=== PATIENT | female | born 2000 | race Caucasian/White ===

== ENCOUNTER 2020-12-11 07:48 | Inpatient (IN) | payer OTHER, SELFPAY ==
[2020-12-11] VITALS (10 sets, daily range): BP systolic 96–110; BP diastolic 49–67; PULSE 60–91; RESP 14–22; TEMP 36.6–36.8; O2SAT 91–94; BMI 23.6
--- NOTE | ~2020-12-11 | NM_ITS ---
EXAMINATION: NM LUNG IMAGE PERFUSION CLINICAL INDICATION: Hypoxia. COMPARISON: Chest x-ray performed earlier same date. PROCEDURE: Following the intravenous administration of 0.5 millicuries technetium 99m MAA, images of the chest were again obtained in multiple projections using a gamma scintophoto camera. No segmental perfusion defects or other perfusion abnormalities are noted. NM/NM pul perfusion IMPRESSION: Normal radionuclide perfusion scan.
--- NOTE | ~2020-12-11 | US_ITS ---
EXAMINATION: US OBSTETRICAL ULTRASOUND CLINICAL INFORMATION: Abdominal pain and vomiting. COMPARISON: None. LMP: 10/28/2020. Gestational age by maternal dates is 6 weeks, 2 days. Estimated date of delivery by maternal dates is 10/04/2020. TECHNIQUE: Transabdominal imaging of the uterus and ovaries performed utilizing grayscale and color Doppler technique with M-mode imaging FINDINGS: There is a single intrauterine gestational sac with visible yolk sac, embryo/fetus, and cardiac activity. There is no significant subchorionic hemorrhage or hematoma. HR: 122 beats per minute. CRL (crown rump length): 0.66 cm (6 weeks, 4 days). NASRIN (estimated date of delivery): 08/02/2021. MATERNAL ADNEXA: The right maternal ovary measures 3.6 x 2.4 x 2.6 cm. 0.6 cm corpus luteum within the right ovary. The left maternal ovary measures 2.1 x 1.4 x 1.7 cm. There is no significant maternal adnexal mass. No maternal pelvic ascites. US/US OB <= 14 weeks fetus IMPRESSION: 1. Single intrauterine gestation with ultrasound gestational age of 6 weeks, 4 days. 2. Estimated date of delivery is 08/02/2021 +/- 4 days. 3. No maternal adnexal mass or pelvic ascites.
--- NOTE | ~2020-12-11 | XR_ITS ---
EXAMINATION: XR CHEST CLINICAL INFORMATION: Chest pain COMPARISON: None TECHNIQUE: Frontal view of the chest was obtained. FINDINGS: No significant abnormality is noted involving the heart, lungs, mediastinum, bony thorax or soft tissues. XR/XR chest 1V IMPRESSION: Unremarkable chest examination.
--- NOTE | ~2020-12-11 | US_ITS ---
EXAMINATION: US VENOUS ULTRASOUND WITH DOPPLER LOWER EXTREMITY, BILATERAL CLINICAL INFORMATION: Hypoxia, . Question DVT. COMPARISON: None TECHNIQUE: Ultrasound of the deep veins is performed from the hip to the calf with compression sonography and color and pulse Doppler assessment. Spectral analysis with color-flow imaging is performed. FINDINGS: RIGHT: There is normal venous compression and respiratory variation and augmented flow. The visualized common femoral vein, superficial femoral vein, profunda femoral vein, popliteal vein, and the trifurcation region shows no evidence of deep venous thrombosis. There is no significant popliteal fossa cyst. LEFT: There is normal venous compression and respiratory variation and augmented flow. The visualized common femoral vein, superficial femoral vein, profunda femoral vein, popliteal vein, and the trifurcation region shows no evidence of deep venous thrombosis. There is no significant popliteal fossa cyst. If the patient's symptoms persist, followup ultrasound in 5 days 7 days might be of value to exclude proximal propagation from a non-visualized calf vein. US/US venous duplex LE BI IMPRESSION: No DVT demonstrated in the bilateral lower extremity.
[2020-12-11] MEDS: ondansetron HCL 4 MG/2 ML VIAL IVPUSH ×2 (09:07→15:46)
[2020-12-11] MEDS: 0.9 % Sodium Chloride 1,000 ML 999 ML IVCONT ×2 (09:07→18:54)
--- NOTE | 2020-12-11 09:14 | ECG_ITS ---
Test Reason : CHEST PAIN Blood Pressure : / mmHG Vent. Rate : 058 BPM Atrial Rate : 058 BPM P-R Int : 144 ms QRS Dur : 072 ms QT Int : 404 ms P-R-T Axes : 066 073 054 degrees QTc Int : 396 ms Sinus bradycardia with marked sinus arrhythmia Otherwise normal ECG When compared with ECG of 12-JUN-2018 22:58, Vent. rate has decreased BY 60 BPM T wave amplitude has increased in Anterior leads Referred By: Seda Liu Electronically Signed By:Rolf Busby
--- NOTE | 2020-12-11 09:15 | ED_ITS ---
HPI - General Adult General Chief complaint: General Medical <MELIA Patel - Last Filed: 12/11/20 17:08> Stated complaint: VOMITING - 6WKS PREG <MELIA Patel - Last Filed: 12/11/20 17:08> Time Seen by Provider: 12/11/20 08:23 <MELIA Patel Last Filed: 12/11/20 17:08> Source: patient <MELIA Patel Last Filed: 12/11/20 17:08> Mode of arrival: ambulatory <MELIA Patel Last Filed: 12/11/20 17:08> Limitations: no limitations <MELIA Patel Last Filed: 12/11/20 17:08> History of Present Illness HPI narrative: 20 y/o who is 6-7 weeks presenting with nausea and vomiting since last night. She states her LMP was 10/28/20. She has been having normal morning sickness with only nausea and very occasional vomiting. She states she woke up early this morning with profuse vomiting and inability to tolerate any water, Gatorade or crackers. She states her vomitus is yellow bile. It is associated with right sided and epigastric abdominal pain. She denies vaginal bleeding, lower abdominal pain/cramping. She states her urine is dark. She denies dysuria. No fever or chills. She has mild SOB and central chest pain/ epigastric pain when she vomits. No known exposure to COVID-19. <MELIA Patel Last Filed: 12/11/20 17:08> MD complaint: nausea and vomiting <MELIA Patel - Last Filed: 12/11/20 17:08> Onset (ago): hour(s) (6) <MELIA Patel Last Filed: 12/11/20 17:08> Location: abdomen <MELIA Patel Last Filed: 12/11/20 17:08> Radiation: non-radiation <MELIA Patel Last Filed: 12/11/20 17:08> Severity: moderate <MELIA Patel Last Filed: 12/11/20 17:08> Quality: burning, aching and constant <MELIA Patel Last Filed: 12/11/20 17:08> Pain Consistency: intermittent <MELIA Patel Last Filed: 12/11/20 17:08> Relieving factors: none <MELIA Patel Last Filed: 12/11/20 17:08> Exacerbating factors: eating <MELIA Patel Last Filed: 12/11/20 17:08> Associated symptoms: chest pain (epigastric ), nausea/vomiting, shortness of breath and weakness <MELIA Patel Last Filed: 12/11/20 17:08> Treatments prior to arrival: none <MELIA Patel Last Filed: 12/11/20 17:08> Related Data Allergies/adverse reactions: Allergies Allergy/AdvReac Type Severity Reaction Status Date / Time kendrick Allergy Unknown RASH Unverified 06/17/20 16:44 <MELIA Patel Last Filed: 12/11/20 17:08> Review of Systems Review of Systems: Constitutional: No Fever, No Chills ENT/Mouth: No sore throat, No Rhinorrhea, No Swallowing Difficulty Eyes: No Eye Pain, No Swelling, No Redness Cardiovascular: + Chest Pain, + SOB, No Orthopnea, No Edema Respiratory: No Cough, No Sputum, No Wheezing, No dyspnea Gastrointestinal: + Nausea, + Vomiting, No Diarrhea, + abdominal Pain, No Hematochezia, No Melena Genitourinary: No Dysuria, No Urinary Frequency, No Hematuria Musculoskeletal: No joint pain, No Myalgias Skin: No Skin Lesions, No rash Neuro: + Weakness, No Numbness, No Dizziness, No Headache Psych: No Anxiety/Panic, No Depression Heme/Lymph: No Bruising, No Lymphadenopathy Endocrine: No Polyuria, No Polydipsia <MELIA Patel Last Filed: 12/11/20 17:08> FORMERLY [facility], [facility] Past Medical History Attestation statement: The following information was validated with the patient. <MELIA Patel Last Filed: 12/11/20 17:08> : 2 <MELIA Patel Last Filed: 12/11/20 17:08> Para: 1 <MELIA Patel - Last Filed: 12/11/20 17:08> Total number of abortions (spontaneous and elective): 0 <MELIA Patel - Last Filed: 12/11/20 17:08> Date of Last Menstrual Period: 10/28/20 <MELIA Patle - Last Filed: 12/11/20 17:08> Social History Social History: Social History Smoking Status: Former smoker Use of substances other than those prescribed or required for medical reasons: No Advance Directives: No Advance Directives Information Provided: Yes <MELIA Patel - Last Filed: 12/11/20 17:08> Physical Exam Vital Signs: Vital Signs: Last Vital Signs Temp 98.3 F 12/11/20 18:00 Pulse 79 12/11/20 18:55 Resp 16 12/11/20 18:55 BP 106/52 L 12/11/20 18:55 Pulse Ox 93 12/11/20 18:55 Body Mass Index 23.6 Appearance: Alert. Oriented X3. No acute distress. Eyes: Pupils equal, round and reactive to light. ENT: Pharynx normal. Neck: Normal inspection. Neck supple. CVS: Normal heart rate and rhythm. Pulses normal. Respiratory: No respiratory distress. Breath sounds normal. Abdomen: Soft with RUQ tenderness to deep palpation, no rebound or guarding. +BS x4, hyperactive Skin: Skin warm and dry. Normal skin color. Normal skin turgor. No rashes. Extremities: No lower extremity edema. Negative Liss's sign. Neuro: Oriented X 3. No motor deficit. No sensory deficit. Walks with steady gait. <MELIA Patel - Last Filed: 12/11/20 17:08> Vital Signs: Last Vital Signs Temp 98.3 F 12/11/20 18:00 Pulse 79 12/11/20 18:55 Resp 16 12/11/20 18:55 BP 106/52 L 12/11/20 18:55 Pulse Ox 93 12/11/20 18:55 Body Mass Index 23.6 <Richard Springer MD - Last Filed: 12/11/20 19:58> Course Course Course Narrative: 20 y/o female who is 6-7 weeks who presents with nausea and vomiting that started late last night. Unable to tolerate PO. When she is vomiting she reports central chest discomfort, SOB and epigastric burning. On arrival SpO2 90% on room air. Lungs clear, no hx of asthma. Will get basic lab workup including DDIMER, CXR, troponin, EKG. IVF and Zofran ordered. <MELIA Patel - Last Filed: 12/11/20 17:08> Reevaluation(s) Reevaluation #1: DDIMER negative, troponin negative. CXR negative. COVID negative. Remains on 2L NC. When taken off O2 her SpO2 90-92%. Spoke with Dr. Alejandre at 12:20 pm - per [place] [employer] and ACOG recommendations it is recommended to get a V/Q scan for further investigation of hypoxia. LE dopplers also ordered. Patient has recurrent nausea - IV reglan ordered. Consent obtained for V/Q scan - risks and benefits discussed and patient understands the risks. <MELIA Patel - Last Filed: 12/11/20 17:08> Patient with vomiting and shortness of breath plan to admit to the hospital but patient refusing to get admitted would like to go AMA for Child issues at home. Patient was saturating 90% on ambulation will do discharge the patient AMA on Augmentin and short course of steroids <Richard Springer MD - Last Filed: 12/11/20 19:58> Time: 19:55 <Richard Springer MD - Last Filed: 12/11/20 19:58> Reevaluation #2: UA positive for infection - will treat with cephalosporin. VQ is normal ECHO ordered to assess for peripartum cardiomyopathy, her BNP is normal. Will need to be admitted for hypoxia. <MELIA Patel - Last Filed: 12/11/20 17:08> Reevaluation #3: Trialed albuterol with no improvement in saturations. She is now on 4L NC with SpO2 93-94%. She is breathing comfortably. Dr. Alejandre recommending transfer to [facility] for further workup. Spoke with Bed Management at [facility] and OB restident at [facility] - no medical need to transfer to [facility] at this time. Will admit here. Dr. Lehman aware. <MELIA Patel - Last Filed: 12/11/20 17:08> Consultations Consultation #1: Dr. Alejandre - [employer] <MELIA Patel - Last Filed: 12/11/20 17:08> Medical Decision Making Lab Data Result diagrams: : 12/11/20 09:03 12/11/20 09:03 <MELIA Patel - Last Filed: 12/11/20 17:08> Labs: Lab Results 12/11/20 12/11/20 12/11/20 Range/Units 09:03 09:03 09:03 WBC 9.7 (4.8-10.8) X10*3/uL RBC 5.13 (4.20-5.50) X10*6/uL Hgb 15.5 (12.0-16.0) g/dl Hct 46.0 (37-47) % MCV 89.7 (80-98) fL MCH 30.2 (27.0-33.0) pg MCHC 33.7 (31.0-35.0) g/dl RDW 12.2 (11.0-16.0) % Plt Count 267 (160-400) X10*3/uL MPV 9.9 (9.4-12.3) fL Immature Gran % (Auto) 0.5 H (0.0-0.4) % Neut % (Auto) 76.9 H (45-73) % Lymph % (Auto) 15.7 L (20-40) % [place] % (Auto) 6.1 (2-11) % Eos % (Auto) 0.5 (0-4) % Baso % (Auto) 0.3 (0-2) % Lymph # (Auto) 1.5 (1.2-4.9) X10*3/uL [place] # (Auto) 0.6 (0.1-1.2) X10*3/uL Eos # (Auto) 0.1 (0.0-0.4) X10*3/uL Baso # (Auto) 0.0 (0.0-0.2) X10*3/uL Abs Immat Gran (auto) 0.05 H (0.00-0.03) X10*3/uL Absolute Neuts (auto) 7.4 (2.0-8.3) X10*3/uL Absolute Nucleated RBC 0.000 (0.0-0.012) X10*3/uL Nucleated RBC % (auto) 0.0 (0.0-0.2) /100WBC D-Dimer NG/ML O2 Saturation % ABG pH at Pt Temp (7.35-7.45) ABG pCO2 at Pt Temp (32-45) mmHg ABG pO2 at Pt Temp (83-108) mmHg ABG HCO3 (22-26) mmol/L ABG Base Excess (Actual) mmol/L Sodium 138 (135-145) mmol/L Potassium 3.7 (3.3-5.1) mmol/L Chloride 104 (96-108) mmol/L Carbon Dioxide 23 (22-29) mmol/L Anion Gap 15 (12-20) BUN 8 L (9-16) mg/dL Creatinine 0.75 (0.5-1.4) mg/dL Estim Creat Clear Calc 106.8 Estimated GFR > 60 Random Glucose 112 (60-115) mg/dL Lactic Acid (0.5-2.0) mmol/L Calcium 10.0 (8.4-10.2) mg/dL Magnesium 2.2 (1.6-2.6) mg/dL Total Bilirubin 0.8 (0.0-1.0) mg/dL Direct Bilirubin 0.4 (0.0-0.5) mg/dL AST 18 (5-31) U/L ALT 11 (0-31) U/L Alkaline Phosphatase 60 (39-117) U/L Troponin I High Sens (<3.5-17.0) ng/L B-Natriuretic Peptide (<100) pg/mL Total Protein 8.0 (6.5-8.0) g/dL Albumin 5.2 H (3.5-5.0) g/dL TSH 1.00 (0.32-4.0) uIU/mL Beta HCG, Quant 85955 mIU/mL Urine Color DARK YELLOW Urine Appearance HAZY Urine pH 6.0 (5.0-8.0) Ur Specific Banner 1.025 (1.005-1.025) Urine Protein 1+ H (NEG-TRACE) MG/DL Urine Glucose (UA) NEG (NEG) MG/DL Urine Ketones 40 (NEG) MG/DL Urine Blood 2+ H (NEG) Urine Nitrite NEG (NEG) Ur Leukocyte Esterase TRACE H (NEG) Urine RBC 5-9 H (0) /HPF Urine WBC 10-14 H (0-4) /HPF Ur Squamous Epith Cells 3+ /LPF Urine Bacteria 1+ /LPF Urine Mucus 4+ /LPF Urine Test (NEGATIVE) Coronavirus (PCR) (Negative) Influenza Type A (PCR) (Negative) Influenza Type B (PCR) (Negative) RSV RNA Qual (PCR) (Negative) 12/11/20 12/11/20 12/11/20 Range/Units 09:04 09:31 09:45 WBC (4.8-10.8) X10*3/uL RBC (4.20-5.50) X10*6/uL Hgb (12.0-16.0) g/dl Hct (37-47) % MCV (80-98) fL MCH (27.0-33.0) pg MCHC (31.0-35.0) g/dl RDW (11.0-16.0) % Plt Count (160-400) X10*3/uL MPV (9.4-12.3) fL Immature Gran % (Auto) (0.0-0.4) % Neut % (Auto) (45-73) % Lymph % (Auto) (20-40) % [place] % (Auto) (2-11) % Eos % (Auto) (0-4) % Baso % (Auto) (0-2) % Lymph # (Auto) (1.2-4.9) X10*3/uL [place] # (Auto) (0.1-1.2) X10*3/uL Eos # (Auto) (0.0-0.4) X10*3/uL Baso # (Auto) (0.0-0.2) X10*3/uL Abs Immat Gran (auto) (0.00-0.03) X10*3/uL Absolute Neuts (auto) (2.0-8.3) X10*3/uL Absolute Nucleated RBC (0.0-0.012) X10*3/uL Nucleated RBC % (auto) (0.0-0.2) /100WBC D-Dimer NG/ML O2 Saturation % ABG pH at Pt Temp (7.35-7.45) ABG pCO2 at Pt Temp (32-45) mmHg ABG pO2 at Pt Temp (83-108) mmHg ABG HCO3 (22-26) mmol/L ABG Base Excess (Actual) mmol/L Sodium (135-145) mmol/L Potassium (3.3-5.1) mmol/L Chloride (96-108) mmol/L Carbon Dioxide (22-29) mmol/L Anion Gap (12-20) BUN (9-16) mg/dL Creatinine (0.5-1.4) mg/dL Estim Creat Clear Calc Estimated GFR Random Glucose (60-115) mg/dL Lactic Acid (0.5-2.0) mmol/L Calcium (8.4-10.2) mg/dL Magnesium (1.6-2.6) mg/dL Total Bilirubin (0.0-1.0) mg/dL Direct Bilirubin (0.0-0.5) mg/dL AST (5-31) U/L ALT (0-31) U/L Alkaline Phosphatase (39-117) U/L Troponin I High Sens < 3.5 (<3.5-17.0) ng/L B-Natriuretic Peptide < 10 (<100) pg/mL Total Protein (6.5-8.0) g/dL Albumin (3.5-5.0) g/dL TSH (0.32-4.0) uIU/mL Beta HCG, Quant mIU/mL Urine Color Urine Appearance Urine pH (5.0-8.0) Ur Specific Banner (1.005-1.025) Urine Protein (NEG-TRACE) MG/DL Urine Glucose (UA) (NEG) MG/DL Urine Ketones (NEG) MG/DL Urine Blood (NEG) Urine Nitrite (NEG) Ur Leukocyte Esterase (NEG) Urine RBC (0) /HPF Urine WBC (0-4) /HPF Ur Squamous Epith Cells /LPF Urine Bacteria /LPF Urine Mucus /LPF Urine Test POSITIVE H (NEGATIVE) Coronavirus (PCR) NEGATIVE (Negative) Influenza Type A (PCR) NEGATIVE (Negative) Influenza Type B (PCR) NEGATIVE (Negative) RSV RNA Qual (PCR) NEGATIVE (Negative) 12/11/20 12/11/20 12/11/20 Range/Units 10:54 16:26 17:41 WBC (4.8-10.8) X10*3/uL RBC (4.20-5.50) X10*6/uL Hgb (12.0-16.0) g/dl Hct (37-47) % MCV (80-98) fL MCH (27.0-33.0) pg MCHC (31.0-35.0) g/dl RDW (11.0-16.0) % Plt Count (160-400) X10*3/uL MPV (9.4-12.3) fL Immature Gran % (Auto) (0.0-0.4) % Neut % (Auto) (45-73) % Lymph % (Auto) (20-40) % [place] % (Auto) (2-11) % Eos % (Auto) (0-4) % Baso % (Auto) (0-2) % Lymph # (Auto) (1.2-4.9) X10*3/uL [place] # (Auto) (0.1-1.2) X10*3/uL Eos # (Auto) (0.0-0.4) X10*3/uL Baso # (Auto) (0.0-0.2) X10*3/uL Abs Immat Gran (auto) (0.00-0.03) X10*3/uL Absolute Neuts (auto) (2.0-8.3) X10*3/uL Absolute Nucleated RBC (0.0-0.012) X10*3/uL Nucleated RBC % (auto) (0.0-0.2) /100WBC D-Dimer < 200 NG/ML O2 Saturation 99.0 % ABG pH at Pt Temp 7.44 (7.35-7.45) ABG pCO2 at Pt Temp 27 L (32-45) mmHg ABG pO2 at Pt Temp 206 H (83-108) mmHg ABG HCO3 18 L (22-26) mmol/L ABG Base Excess (Actual) -3.8 mmol/L Sodium (135-145) mmol/L Potassium (3.3-5.1) mmol/L Chloride (96-108) mmol/L Carbon Dioxide (22-29) mmol/L Anion Gap (12-20) BUN (9-16) mg/dL Creatinine (0.5-1.4) mg/dL Estim Creat Clear Calc Estimated GFR Random Glucose (60-115) mg/dL Lactic Acid 0.9 (0.5-2.0) mmol/L Calcium (8.4-10.2) mg/dL Magnesium (1.6-2.6) mg/dL Total Bilirubin (0.0-1.0) mg/dL Direct Bilirubin (0.0-0.5) mg/dL AST (5-31) U/L ALT (0-31) U/L Alkaline Phosphatase (39-117) U/L Troponin I High Sens (<3.5-17.0) ng/L B-Natriuretic Peptide (<100) pg/mL Total Protein (6.5-8.0) g/dL Albumin (3.5-5.0) g/dL TSH (0.32-4.0) uIU/mL Beta HCG, Quant mIU/mL Urine Color Urine Appearance Urine pH (5.0-8.0) Ur Specific Banner (1.005-1.025) Urine Protein (NEG-TRACE) MG/DL Urine Glucose (UA) (NEG) MG/DL Urine Ketones (NEG) MG/DL Urine Blood (NEG) Urine Nitrite (NEG) Ur Leukocyte Esterase (NEG) Urine RBC (0) /HPF Urine WBC (0-4) /HPF Ur Squamous Epith Cells /LPF Urine Bacteria /LPF Urine Mucus /LPF Urine Test (NEGATIVE) Coronavirus (PCR) (Negative) Influenza Type A (PCR) (Negative) Influenza Type B (PCR) (Negative) RSV RNA Qual (PCR) (Negative) <MELIA Patel - Last Filed: 12/11/20 17:08> Lab Results 12/11/20 12/11/20 12/11/20 Range/Units 09:03 09:03 09:03 WBC 9.7 (4.8-10.8) X10*3/uL RBC 5.13 (4.20-5.50) X10*6/uL Hgb 15.5 (12.0-16.0) g/dl Hct 46.0 (37-47) % MCV 89.7 (80-98) fL MCH 30.2 (27.0-33.0) pg MCHC 33.7 (31.0-35.0) g/dl RDW 12.2 (11.0-16.0) % Plt Count 267 (160-400) X10*3/uL MPV 9.9 (9.4-12.3) fL Immature Gran % (Auto) 0.5 H (0.0-0.4) % Neut % (Auto) 76.9 H (45-73) % Lymph % (Auto) 15.7 L (20-40) % [place] % (Auto) 6.1 (2-11) % Eos % (Auto) 0.5 (0-4) % Baso % (Auto) 0.3 (0-2) % Lymph # (Auto) 1.5 (1.2-4.9) X10*3/uL [place] # (Auto) 0.6 (0.1-1.2) X10*3/uL Eos # (Auto) 0.1 (0.0-0.4) X10*3/uL Baso # (Auto) 0.0 (0.0-0.2) X10*3/uL Abs Immat Gran (auto) 0.05 H (0.00-0.03) X10*3/uL Absolute Neuts (auto) 7.4 (2.0-8.3) X10*3/uL Absolute Nucleated RBC 0.000 (0.0-0.012) X10*3/uL Nucleated RBC % (auto) 0.0 (0.0-0.2) /100WBC D-Dimer NG/ML O2 Saturation % ABG pH at Pt Temp (7.35-7.45) ABG pCO2 at Pt Temp (32-45) mmHg ABG pO2 at Pt Temp (83-108) mmHg ABG HCO3 (22-26) mmol/L ABG Base Excess (Actual) mmol/L Sodium 138 (135-145) mmol/L Potassium 3.7 (3.3-5.1) mmol/L Chloride 104 (96-108) mmol/L Carbon Dioxide 23 (22-29) mmol/L Anion Gap 15 (12-20) BUN 8 L (9-16) mg/dL Creatinine 0.75 (0.5-1.4) mg/dL Estim Creat Clear Calc 106.8 Estimated GFR > 60 Random Glucose 112 (60-115) mg/dL Lactic Acid (0.5-2.0) mmol/L Calcium 10.0 (8.4-10.2) mg/dL Magnesium 2.2 (1.6-2.6) mg/dL Total Bilirubin 0.8 (0.0-1.0) mg/dL Direct Bilirubin 0.4 (0.0-0.5) mg/dL AST 18 (5-31) U/L ALT 11 (0-31) U/L Alkaline Phosphatase 60 (39-117) U/L Troponin I High Sens (<3.5-17.0) ng/L B-Natriuretic Peptide (<100) pg/mL Total Protein 8.0 (6.5-8.0) g/dL Albumin 5.2 H (3.5-5.0) g/dL TSH 1.00 (0.32-4.0) uIU/mL Beta HCG, Quant 01166 mIU/mL Urine Color DARK YELLOW Urine Appearance HAZY Urine pH 6.0 (5.0-8.0) Ur Specific Banner 1.025 (1.005-1.025) Urine Protein 1+ H (NEG-TRACE) MG/DL Urine Glucose (UA) NEG (NEG) MG/DL Urine Ketones 40 (NEG) MG/DL Urine Blood 2+ H (NEG) Urine Nitrite NEG (NEG) Ur Leukocyte Esterase TRACE H (NEG) Urine RBC 5-9 H (0) /HPF Urine WBC 10-14 H (0-4) /HPF Ur Squamous Epith Cells 3+ /LPF Urine Bacteria 1+ /LPF Urine Mucus 4+ /LPF Urine Test (NEGATIVE) Coronavirus (PCR) (Negative) Influenza Type A (PCR) (Negative) Influenza Type B (PCR) (Negative) RSV RNA Qual (PCR) (Negative) 12/11/20 12/11/20 12/11/20 Range/Units 09:04 09:31 09:45 WBC (4.8-10.8) X10*3/uL RBC (4.20-5.50) X10*6/uL Hgb (12.0-16.0) g/dl Hct (37-47) % MCV (80-98) fL MCH (27.0-33.0) pg MCHC (31.0-35.0) g/dl RDW (11.0-16.0) % Plt Count (160-400) X10*3/uL MPV (9.4-12.3) fL Immature Gran % (Auto) (0.0-0.4) % Neut % (Auto) (45-73) % Lymph % (Auto) (20-40) % [place] % (Auto) (2-11) % Eos % (Auto) (0-4) % Baso % (Auto) (0-2) % Lymph # (Auto) (1.2-4.9) X10*3/uL [place] # (Auto) (0.1-1.2) X10*3/uL Eos # (Auto) (0.0-0.4) X10*3/uL Baso # (Auto) (0.0-0.2) X10*3/uL Abs Immat Gran (auto) (0.00-0.03) X10*3/uL Absolute Neuts (auto) (2.0-8.3) X10*3/uL Absolute Nucleated RBC (0.0-0.012) X10*3/uL Nucleated RBC % (auto) (0.0-0.2) /100WBC D-Dimer NG/ML O2 Saturation % ABG pH at Pt Temp (7.35-7.45) ABG pCO2 at Pt Temp (32-45) mmHg ABG pO2 at Pt Temp (83-108) mmHg ABG HCO3 (22-26) mmol/L ABG Base Excess (Actual) mmol/L Sodium (135-145) mmol/L Potassium (3.3-5.1) mmol/L Chloride (96-108) mmol/L Carbon Dioxide (22-29) mmol/L Anion Gap (12-20) BUN (9-16) mg/dL Creatinine (0.5-1.4) mg/dL Estim Creat Clear Calc Estimated GFR Random Glucose (60-115) mg/dL Lactic Acid (0.5-2.0) mmol/L Calcium (8.4-10.2) mg/dL Magnesium (1.6-2.6) mg/dL Total Bilirubin (0.0-1.0) mg/dL Direct Bilirubin (0.0-0.5) mg/dL AST (5-31) U/L ALT (0-31) U/L Alkaline Phosphatase (39-117) U/L Troponin I High Sens < 3.5 (<3.5-17.0) ng/L B-Natriuretic Peptide < 10 (<100) pg/mL Total Protein (6.5-8.0) g/dL Albumin (3.5-5.0) g/dL TSH (0.32-4.0) uIU/mL Beta HCG, Quant mIU/mL Urine Color Urine Appearance Urine pH (5.0-8.0) Ur Specific Banner (1.005-1.025) Urine Protein (NEG-TRACE) MG/DL Urine Glucose (UA) (NEG) MG/DL Urine Ketones (NEG) MG/DL Urine Blood (NEG) Urine Nitrite (NEG) Ur Leukocyte Esterase (NEG) Urine RBC (0) /HPF Urine WBC (0-4) /HPF Ur Squamous Epith Cells /LPF Urine Bacteria /LPF Urine Mucus /LPF Urine Test POSITIVE H (NEGATIVE) Coronavirus (PCR) NEGATIVE (Negative) Influenza Type A (PCR) NEGATIVE (Negative) Influenza Type B (PCR) NEGATIVE (Negative) RSV RNA Qual (PCR) NEGATIVE (Negative) 12/11/20 12/11/20 12/11/20 Range/Units 10:54 16:26 17:41 WBC (4.8-10.8) X10*3/uL RBC (4.20-5.50) X10*6/uL Hgb (12.0-16.0) g/dl Hct (37-47) % MCV (80-98) fL MCH (27.0-33.0) pg MCHC (31.0-35.0) g/dl RDW (11.0-16.0) % Plt Count (160-400) X10*3/uL MPV (9.4-12.3) fL Immature Gran % (Auto) (0.0-0.4) % Neut % (Auto) (45-73) % Lymph % (Auto) (20-40) % [place] % (Auto) (2-11) % Eos % (Auto) (0-4) % Baso % (Auto) (0-2) % Lymph # (Auto) (1.2-4.9) X10*3/uL [place] # (Auto) (0.1-1.2) X10*3/uL Eos # (Auto) (0.0-0.4) X10*3/uL Baso # (Auto) (0.0-0.2) X10*3/uL Abs Immat Gran (auto) (0.00-0.03) X10*3/uL Absolute Neuts (auto) (2.0-8.3) X10*3/uL Absolute Nucleated RBC (0.0-0.012) X10*3/uL Nucleated RBC % (auto) (0.0-0.2) /100WBC D-Dimer < 200 NG/ML O2 Saturation 99.0 % ABG pH at Pt Temp 7.44 (7.35-7.45) ABG pCO2 at Pt Temp 27 L (32-45) mmHg ABG pO2 at Pt Temp 206 H (83-108) mmHg ABG HCO3 18 L (22-26) mmol/L ABG Base Excess (Actual) -3.8 mmol/L Sodium (135-145) mmol/L Potassium (3.3-5.1) mmol/L Chloride (96-108) mmol/L Carbon Dioxide (22-29) mmol/L Anion Gap (12-20) BUN (9-16) mg/dL Creatinine (0.5-1.4) mg/dL Estim Creat Clear Calc Estimated GFR Random Glucose (60-115) mg/dL Lactic Acid 0.9 (0.5-2.0) mmol/L Calcium (8.4-10.2) mg/dL Magnesium (1.6-2.6) mg/dL Total Bilirubin (0.0-1.0) mg/dL Direct Bilirubin (0.0-0.5) mg/dL AST (5-31) U/L ALT (0-31) U/L Alkaline Phosphatase (39-117) U/L Troponin I High Sens (<3.5-17.0) ng/L B-Natriuretic Peptide (<100) pg/mL Total Protein (6.5-8.0) g/dL Albumin (3.5-5.0) g/dL TSH (0.32-4.0) uIU/mL Beta HCG, Quant mIU/mL Urine Color Urine Appearance Urine pH (5.0-8.0) Ur Specific Banner (1.005-1.025) Urine Protein (NEG-TRACE) MG/DL Urine Glucose (UA) (NEG) MG/DL Urine Ketones (NEG) MG/DL Urine Blood (NEG) Urine Nitrite (NEG) Ur Leukocyte Esterase (NEG) Urine RBC (0) /HPF Urine WBC (0-4) /HPF Ur Squamous Epith Cells /LPF Urine Bacteria /LPF Urine Mucus /LPF Urine Test (NEGATIVE) Coronavirus (PCR) (Negative) Influenza Type A (PCR) (Negative) Influenza Type B (PCR) (Negative) RSV RNA Qual (PCR) (Negative) <Richard Springer MD - Last Filed: 12/11/20 19:58> ECG Data Attestation: I personally reviewed and interpreted this ECG as follows: <MELIA Patel - Last Filed: 12/11/20 17:08> Interpretation: sinus bradycardia, HR 58 bpm, normal ND interval, nomral QTC. no ST segment elevations. <MELIA Patel - Last Filed: 12/11/20 17:08> Scores Heart Score History: -0- slightly suspicious <MELIA Patel - Last Filed: 12/11/20 17:0 8> ECG: -0- normal <MELIA Patel - Last Filed: 12/11/20 17:08> Age: -0- < or = 45 <MELIA Patel - Last Filed: 12/11/20 17:08> Risk factory: -0- no risk factors known <MELIA Patel - Last Filed: 12/11/20 17:08> Troponin: -0- < or = normal limit <MELIA Patel - Last Filed: 12/11/20 17:08> Score: 0 <MELIA Patel - Last Filed: 12/11/20 17:08> Risk: 1.7% <MELIA Patel - Last Filed: 12/11/20 17:08> Critical Care Time Critical Care Time Critical Care Time: Yes <MELIA Patel - Last Filed: 12/11/20 17:08> Total Critical Care Time: 60 <MELIA Patel - Last Filed: 12/11/20 17:08> Attestation: I attest to critical care time spent caring for this patient with acute hypoxic respiratory failure of unclear etiology. Multiple re-evaluations at the bedside, reviewing records and results, and discussing with OB. <MELIA Patel - Last Filed: 12/11/20 17:08> Discharge Plan Discharge Clinical Impression: Acute respiratory failure with hypoxia, Vomiting during <MELIA Patel - Last Filed: 12/11/20 17:08> Patient Disposition: Left Against Medical Advice <MELIA Patel - Last Filed: 12/11/20 17:08>
[2020-12-11 09:17] LABS: MANUAL DIFF FLAG NO
[2020-12-11 09:19] LABS: Basophils Percent Auto 0.3 % (0-2); Eosinophils Absolute Auto 0.1 X10*3/uL (0.0-0.4); Eosinophils Percent Auto 0.5 % (0-4); Hemoglobin 15.5 g/dl (12.0-16.0); Imm Gran Abs Auto 0.05 X10*3/uL (0.00-0.03); Imm Gran Pct Auto 0.5 % (0.0-0.4); Lymphocytes Absolute Auto 1.5 X10*3/uL (1.2-4.9); Lymphocytes Percent Auto 15.7 % (20-40); Mean Corpuscular HGB Conc 33.7 g/dl (31.0-35.0); Mean Corpuscular Hemoglobin 30.2 pg (27.0-33.0); Mean Corpuscular Volume 89.7 fL (80-98); Mean Platelet Volume 9.9 fL (9.4-12.3); Monocytes Absolute Auto 0.6 X10*3/uL (0.1-1.2); Monocytes Percent Auto 6.1 % (2-11); Neutrophils Absolute Auto 7.4 X10*3/uL (2.0-8.3); Neutrophils Percent Auto 76.9 % (45-73); Platelet Count 267 X10*3/uL (160-400); Red Blood Count 5.13 X10*6/uL (4.20-5.50); Red Cell Distribution Width 12.2 % (11.0-16.0); White Blood Count 9.7 X10*3/uL (4.8-10.8)
[2020-12-11 09:20] LABS: Appearance Urine HAZY; Color Urine DARK YELLOW; Glucose Urine UA NEG (NEG); Leukocyte Esterase Urine TRACE (NEG); Nitrite Urine NEG (NEG); Specific Gravity - Urine 1.025 (1.005-1.025); UACC Culture Trigger YES; Urine Blood 2+ (NEG); Urine Ketones 40 MG/DL (NEG); Urine Protein 1+ MG/DL (NEG-TRACE)
[2020-12-11 09:23] LABS: Urine Pregnancy POSITIVE (NEGATIVE)
[2020-12-11 09:24] LABS: UPreg QC Valid YES
[2020-12-11 09:28] LABS: Bacteria Urine 1+ /LPF; Mucus Urine 4+ /LPF; Squamous Epithelial Cell Urine 3+ /LPF
--- NOTE | 2020-12-11 09:36 | PC.NURSE ---
patient o2 sats low upon arrival, 90%-91%. encouraged deep breathing, warmed hands which felt cool to touch. no improvement. patient reports she feels sob. PA made aware and went t bedside. patient also reports mid chest pain. ekg and chest x ray ordered. reports no sick contacts. placed on 2l o2. highest o2 94%. will monitor.
[2020-12-11 09:45] LABS: Alanine Aminotransferase 11 U/L (0-31); Albumin Level 5.2 g/dL (3.5-5.0); Alkaline Phosphatase 60 U/L (39-117); Anion Gap 15 (12-20); Aspartate Amino Transferase 18 U/L (5-31); Bilirubin Direct 0.4 mg/dL (0.0-0.5); Bilirubin Total 0.8 mg/dL (0.0-1.0); Blood Urea Nitrogen 8 mg/dL (9-16); Carbon Dioxide 23 mmol/L (22-29); Chloride 104 mmol/L (96-108); Creatinine Clr Calc Pharmacy 106.8; Estimated Glomerular Filt Rate > 60; Glucose Random 112 mg/dL (60-115); Magnesium 2.2 mg/dL (1.6-2.6); Potassium 3.7 mmol/L (3.3-5.1); Sodium 138 mmol/L (135-145)
[2020-12-11 10:15] LABS: Influenza A PCR NEGATIVE (Negative); Influenza B PCR NEGATIVE (Negative); Resp Syncy Virus RNA Qual PCR NEGATIVE (Negative); SARS COV2 PCR INHOUSE NEGATIVE (Negative)
[2020-12-11 10:41] LABS: Troponin-I High Sensitivity < 3.5 ng/L (<3.5-17.0)
[2020-12-11 10:43] LABS: HCG Quantitative 91617 mIU/mL
[2020-12-11 11:09] LABS: D Dimer < 200 NG/ML
--- NOTE | 2020-12-11 12:22 | P.CONOB_ITS ---
EMBEDDED DEVELOPER - CN: HPI Data of Consult Consult date: 12/11/20 Primary Care Provider: None Physician Consult Narrative Narrative: I was consulted regarding Teetee Miller who is a 20 year old female who presented emergency room with shortness of breath at 6 weeks of gestation no other respiratory symptoms. Pulse ox on presentation was 90%, COVID-19 is negative chest x-rays negative cc:: CC: FINISHER MAP AND CHART - Review of Systems Review of Systems ROS Unobtainable: All systems reviewed & are unremarkable except as noted in HPI and below Cardiovascular: Denies Palpatations, Loss of consciousness and Chest pain Respiratory: Denies Cough, Wheezing and Shortness of breath Musculoskeletal: Denies Low back pain Gastrointestinal: Denies Heartburn, Constipation, Diarrhea, Nausea and Vomiting Genitourinary: Denies Pain with urination, Burning with urination and Urinary frequency Neurological: Denies Migranes Psychological: Denies Depression OB [facility] Social History Social History Advance Directives: No Advance Directives Information Provided: Yes Meds Allergies Allergy/AdvReac Type Severity Reaction Status Date / Time kendrick Allergy Unknown RASH Unverified 06/17/20 16:44 EMBEDDED DEVELOPER Physical Exam Vitals Vital signs: Temp Pulse Resp BP Pulse Ox 98 F 88 19 103/62 91 L 12/11/20 08:24 12/11/20 12:12 12/11/20 12:12 12/11/20 09:11 12/11/20 12:12 Body Mass Index 23.6 Skin Appearance: No rashes and No lesions EMBEDDED DEVELOPER - Results Labs CBC & Chem 7: 12/11/20 09:03 12/11/20 09:03 Labs: Short CBC 12/11/20 Range/Units 09:03 WBC 9.7 (4.8-10.8) X10*3/uL Hgb 15.5 (12.0-16.0) g/dl Hct 46.0 (37-47) % Plt Count 267 (160-400) X10*3/uL BMP 12/11/20 09:03 Sodium 138 Potassium 3.7 Chloride 104 Carbon Dioxide 23 BUN 8 L Creatinine 0.75 Calcium 10.0 Liver Function 12/11/20 Range/Units 09:03 Total Bilirubin 0.8 (0.0-1.0) mg/dL Direct Bilirubin 0.4 (0.0-0.5) mg/dL AST 18 (5-31) U/L ALT 11 (0-31) U/L Alkaline Phosphatase 60 (39-117) U/L Albumin 5.2 H (3.5-5.0) g/dL Urine 12/11/20 12/11/20 Range/Units 09:03 09:04 Urine Color DARK YELLOW Urine Appearance HAZY Urine pH 6.0 (5.0-8.0) Ur Specific [place] 1.025 (1.005-1.025) Urine Protein 1+ H (NEG-TRACE) MG/DL Urine Glucose (UA) NEG (NEG) MG/DL Urine Test POSITIVE H (NEGATIVE) Assessment and Plan (1) Early stage of : Status: Acute Ultrasound to document intrauterine (2) Dyspnea: Status: Acute Discussed the differential diagnosis including P and cardiomyopathy, recommended that since chest x-ray is negative a duplex scan of the lower extremity and V/Q scan BNP and possible echocardiogram.
[2020-12-11 12:45] LABS: B Type Natriuretic Peptide < 10 pg/mL (<100)
[2020-12-11] MEDS: Metoclopramide HCl 10 MG/2 ML VIAL IVPUSH (12:45)
[2020-12-11] MEDS: Albuterol Sulfate (0.083%) 2.5 MG/3 ML VIAL.NEB INHALE (16:19)
[2020-12-11] MEDS: cefTRIAXone sodium 1 GM in 0.9 % Sodium Chloride 50 ML IV (16:28)
[2020-12-11 16:52] LABS: Lactic Acid 0.9 mmol/L (0.5-2.0)
[2020-12-11 17:50] LABS: ABG Base Excess -3.8 mmol/L; ABG HCO3 18 mmol/L (22-26); ABG pCO2 27 mmHg (32-45); ABG pH 7.44 (7.35-7.45); ABG pO2 206 mmHg (83-108)
[2020-12-11 17:52] LABS: ABG Refer to POC result
--- NOTE | 2020-12-11 18:09 | P.HPHOSP_ITS ---
History of Present Illness Date of Service: 12/11/20 Chief Complaint: Nausea, vomiting, abdominal pain A 20 years old female presents to the hospital with reported abdominal pain, nausea and vomiting for 1 day duration. The patient reported waking the the morning feeling or abdominal pain mainly right-sided associated with nausea and vomiting on multiple occasions. She had multiple episodes of diarrhea which resolved later. She was unable to tolerate anything by mouth even crackers as she continue to vomit. She denies any chest pain, palpitation, shortness of breath or coughing . She denies fever, chills but reporting general weakness and feeling unwell associated with lower abdominal pain that is better now. In the emergency she was found to have drop in her oxygen level to 91 on room air requiring oxygen supplement to keep it above 94 as she is in the 6th week of confirmed by ultrasound. A V/Q scan was negative for any PE as ultrasound was negative for DVT repeated urinalysis showed UTI. Admitted for further evaluation and treatment. Review of Systems Review of Systems: No fever, chills but generalized weakness No chest pain, palpitation No shortness of breath or coughing , Lower abdominal pain, associated with diarrhea, nausea or vomiting Lower urinary pain, no dysuria No any rash or wounds Yes all other systems are reviewed and are negative PMFSH Social History Smoking Status: Former smoker Use of substances other than those prescribed or required for medical reasons: No Advance Directives: No Advance Directives Information Provided: Yes Meds Allergies Allergy/AdvReac Type Severity Reaction Status Date / Time kendrick Allergy Unknown RASH Unverified 06/17/20 16:44 Active Medications: Current Medications Generic Name Dose Route Start Last Admin Trade Name Freq PRN Reason Stop Dose Admin Sodium Chloride 1,000 mls @ 999 mls/hr 12/11/20 17:15 Ns IVCONT 12/11/20 18:15 .Q1H1M SRIKANTH Physical Exam Vital Signs and Narrative: Vital Signs: Last Vital Signs Temp 98.3 F 12/11/20 15:50 Pulse 60 12/11/20 15:50 Resp 15 12/11/20 15:50 BP 96/49 L 12/11/20 15:50 Pulse Ox 92 12/11/20 15:50 Body Mass Index 23.6 Const: Other: Constitutional : Alert, oriented, not in distress Neck : Normal inspection, Supple Cardiovascular : RRR, S1 S2, no lower extremity edema, no JVP, no murmurs Respiratory : Good bilateral air entry, no crackles, wheezes or rhonchi Gastrointestinal: soft, lax, Normal bowel sounds, Non tender Skin : Warm/Dry, No rash Neurological : Alert & oriented x3, No focal deficit Results Labs CBC and Chem 7: 12/11/20 09:03 12/11/20 09:03 Labs: Laboratory Results - last 24 hr 12/11/20 12/11/20 12/11/20 09:03 09:03 09:03 MCV 89.7 MCH 30.2 MCHC 33.7 RDW 12.2 Plt Count 267 MPV 9.9 Immature Gran % (Auto) 0.5 H Neut % (Auto) 76.9 H Lymph % (Auto) 15.7 L [place] % (Auto) 6.1 Eos % (Auto) 0.5 Baso % (Auto) 0.3 Lymph # (Auto) 1.5 [place] # (Auto) 0.6 Eos # (Auto) 0.1 Baso # (Auto) 0.0 Abs Immat Gran (auto) 0.05 H Absolute Neuts (auto) 7.4 Absolute Nucleated RBC 0.000 Nucleated RBC % (auto) 0.0 D-Dimer O2 Saturation ABG pH at Pt Temp ABG pCO2 at Pt Temp ABG pO2 at Pt Temp ABG HCO3 ABG Base Excess (Actual) Anion Gap 15 Estim Creat Clear Calc 106.8 Estimated GFR > 60 Random Glucose 112 Lactic Acid Calcium 10.0 Magnesium 2.2 Total Bilirubin 0.8 Direct Bilirubin 0.4 AST 18 ALT 11 Alkaline Phosphatase 60 Troponin I High Sens B-Natriuretic Peptide Total Protein 8.0 Albumin 5.2 H Beta HCG, Quant 18633 Urine Color DARK YELLOW Urine Appearance HAZY Urine pH 6.0 Ur Specific [place] 1.025 Urine Protein 1+ H Urine Glucose (UA) NEG Urine Ketones 40 Urine Blood 2+ H Urine Nitrite NEG Ur Leukocyte Esterase TRACE H Urine RBC 5-9 H Urine WBC 10-14 H Ur Squamous Epith Cells 3+ Urine Bacteria 1+ Urine Mucus 4+ Urine Test Coronavirus (PCR) Influenza Type A (PCR) Influenza Type B (PCR) RSV RNA Qual (PCR) 12/11/20 12/11/2012/11/21 09:04 09:31 09:45 MCV MCH MCHC RDW Plt Count MPV Immature Gran % (Auto) Neut % (Auto) Lymph % (Auto) [place] % (Auto) Eos % (Auto) Baso % (Auto) Lymph # (Auto) [place] # (Auto) Eos # (Auto) Baso # (Auto) Abs Immat Gran (auto) Absolute Neuts (auto) Absolute Nucleated RBC Nucleated RBC % (auto) D-Dimer O2 Saturation ABG pH at Pt Temp ABG pCO2 at Pt Temp ABG pO2 at Pt Temp ABG HCO3 ABG Base Excess (Actual) Anion Gap Estim Creat Clear Calc Estimated GFR Random Glucose Lactic Acid Calcium Magnesium Total Bilirubin Direct Bilirubin AST ALT Alkaline Phosphatase Troponin I High Sens < 3.5 B-Natriuretic Peptide < 10 Total Protein Albumin Beta HCG, Quant Urine Color Urine Appearance Urine pH Ur Specific [place] Urine Protein Urine Glucose (UA) Urine Ketones Urine Blood Urine Nitrite Ur Leukocyte Esterase Urine RBC Urine WBC Ur Squamous Epith Cells Urine Bacteria Urine Mucus Urine Test POSITIVE H Coronavirus (PCR) NEGATIVE Influenza Type A (PCR) NEGATIVE Influenza Type B (PCR) NEGATIVE RSV RNA Qual (PCR) NEGATIVE 12/11/20 12/11/20 12/11/20 10:54 16:26 17:41 MCV MCH MCHC RDW Plt Count MPV Immature Gran % (Auto) Neut % (Auto) Lymph % (Auto) [place] % (Auto) Eos % (Auto) Baso % (Auto) Lymph # (Auto) [place] # (Auto) Eos # (Auto) Baso # (Auto) Abs Immat Gran (auto) Absolute Neuts (auto) Absolute Nucleated RBC Nucleated RBC % (auto) D-Dimer < 200 O2 Saturation 99.0 ABG pH at Pt Temp 7.44 ABG pCO2 at Pt Temp 27 L ABG pO2 at Pt Temp 206 H ABG HCO3 18 L ABG Base Excess (Actual) -3.8 Anion Gap Estim Creat Clear Calc Estimated GFR Random Glucose Lactic Acid 0.9 Calcium Magnesium Total Bilirubin Direct Bilirubin AST ALT Alkaline Phosphatase Troponin I High Sens B-Natriuretic Peptide Total Protein Albumin Beta HCG, Quant Urine Color Urine Appearance Urine pH Ur Specific [place] Urine Protein Urine Glucose (UA) Urine Ketones Urine Blood Urine Nitrite Ur Leukocyte Esterase Urine RBC Urine WBC Ur Squamous Epith Cells Urine Bacteria Urine Mucus Urine Test Coronavirus (PCR) Influenza Type A (PCR) Influenza Type B (PCR) RSV RNA Qual (PCR) Imaging Radiologist's Impressions: Impressions Chest X-Ray 12/11/20 09:15 IMPRESSION: Unremarkable chest examination. Pulmonary Perfusion Imaging 12/11/20 12:21 IMPRESSION: Normal radionuclide perfusion scan. Venous Duplex 12/11/20 12:21 IMPRESSION: No DVT demonstrated in the bilateral lower extremity. Ultrasound 12/11/20 12:51 IMPRESSION: 1. Single intrauterine gestation with ultrasound gestational age of 6 weeks, 4 days. 2. Estimated date of delivery is 08/02/2021 +/- 4 days. 3. No maternal adnexal mass or pelvic ascites. Assessment and Plan (1) UTI (urinary tract infection): Status: Acute (2) Intractable nausea and vomiting: Status: Acute (3) Early stage of : Status: Acute (4) Hypoxia: Status: Acute A 20 years old female presents to the hospital with reported abdominal pain, nausea and vomiting for 1 day duration. Intractable nausea and vomiting Secondary to urine infection and early stage HCG within normal for this stage Pending urine culture next Lyme continue ceftriaxone as the patient not tolerating oral antibiotics To use vitamin B6, diphenhydramine and Compazine vomiting Gentle hydration Give thiamine and folic acid To check TSH Target Aircraft Controller consult appreciated Hypoxia CXR negative for any acute illness V/Q scan negative for PE Doppler negative for DVT No signs of CHF Likely secondary to poor aspiration Given severe vomiting Wean oxygen down as tolerated Continue to monitor for possible need of echo Oxygen monitoring DVT PPX Early ambulation
[2020-12-11] MEDS: Prochlorperazine Edisylate 10 MG/2 ML VIAL 5 MG IVPUSH (19:26)
--- NOTE | 2020-12-11 19:31 | PC.NURSE ---
Pt medicated for nausea per MAR with Compazine. simulation tech at bedside preparing pt for transport to floor. Pt now refusing admission, states I need to leave and brain picker my daughter. I need to leave right now. This RN explaining to pt the risks of refusing care due to decreased oxygen saturations. Pt continues to refuse admission, requesting to leave right now. Admitting MD contacted via [place] and phone but this RN has been unable to reach MD.
--- NOTE | 2020-12-11 19:36 | PC.NURSE ---
Hospitalist at bedside discussing risks of refusing care.
--- NOTE | 2020-12-11 19:55 | PC.NURSE ---
IV removed. ED MD aware of situation. Pt ambulating with a steady gait, able to maintain a RA sat of 90%, HR increased from 80-110 bpm while ambulating. MD aware. Plan for ABX and AMA discharge.
--- NOTE | 2020-12-11 20:05 | PM.EVENT ---
Event Note Date of Service: 12/11/20 Event Note: pt wants to leave AMA. had an extensive discussion about the risk of leaving AMA. she is aware that she is on oxygen and if she leaves before full medical treatment, she is at risk of worst case scenario for her and her fetus. pt is aware of the risk and still wants to leave AMA> Dr. Ribeiro in ED will be prescribing her meds for her UTI and bronchitis
[2020-12-11] MEDS: Albuterol Sulfate 90 MCG 8 GM INHALER 2 PUFF INHALE (20:16)
[2020-12-11] MEDS: predniSONE 20 MG TABLET 40 MG PO (20:16)
--- NOTE | 2020-12-11 20:21 | PC.NURSE ---
Pt medicated per NOV, provided with AMA paperwork, this RN and wax pot tender signing as a witness. Pt again advised to return to the ER if s/sx worsen and/or to follow up with OBGYN.
--- NOTE | 2020-12-12 07:13 | PM.EVENT ---
Event Note Date of Service: 12/12/20 Event Note: Discharge summary Discharge diagnosis: (1) UTI (urinary tract infection) (2) Intractable nausea and vomiting (3) Early stage of (4) Hypoxia Patient was admitted overnight for treatment of UTI w associated intractable nausea and vomiting and evaluation for hypoxia. She decided to leave AMA overnight for personal reasons. aware of possible negative outcomes.
== END 2020-12-11 20:24 | disposition left against medical advice (07) | DRG 566 ==
LOC: HO.ED 17:06 → HO.S3 18:19
PROVIDERS: Physician Assistant; Admitting Provider Student in an Organized Health Care Education/Training Program; Emergency Provider Emergency Medicine; Visit Provider Student in an Organized Health Care Education/Training Program
DX: O21.9 Vomiting of pregnancy, unspecified (principal); O23.41 Unspecified infection of urinary tract in pregnancy, first trimester; O26.891 Other specified pregnancy related conditions, first trimester; R09.02 Hypoxemia; Z3A.01 Less than 8 weeks gestation of pregnancy; Z20.822 Contact with and (suspected) exposure to COVID-19
CPT/HCPCS: 0241U; 36415; 71045; 76801; 78580; 80048; 80076; 81001; 81003; 81025; 83605; 83735; 83880; 84443; 84484; 84702; 85025; 85379; 87040; 87086; 87088; 87186; 93005; 93970; 94640; 96361; 96365; 96375; 99283; 99284; 99291; A9540; J0696; J2405; J2765

== ENCOUNTER 2020-12-22 15:08 | Outpatient (REF) | payer OTHER, SELFPAY | END 2020-12-22 15:09 | disposition home or self-care (01) | LOC: HO.LAB 15:08 | PROVIDERS: Visit Provider Obstetrics & Gynecology | DX: O99.419 Diseases of the circulatory system complicating pregnancy, unspecified trimester (principal); O23.10 Infections of bladder in pregnancy, unspecified trimester; N30.00 Acute cystitis without hematuria; R01.1 Cardiac murmur, unspecified | CPT/HCPCS: 81003; 81025; 87086; 99212 ==

== ENCOUNTER 2020-12-24 14:07 | Outpatient (REF) | payer OTHER, SELFPAY ==
--- NOTE | ~2020-12-24 | US_ITS ---
EXAMINATION: OBSTETRICAL ULTRASOUND, FIRST TRIMESTER HISTORY: 20-year-old the with the unknown dates Viability LMP: 10/28/2020 COMPARISON: 12/11/2020 TECHNIQUE: Real time transabdominal imaging with color and M-mode Doppler. FINDINGS: A single, live IUP CRL of 18.6 mm c/w 8.3wks is noted. Heart Rate: 169 beats per minute. Both maternal ovaries are seen and appear normal. GESTATIONAL AGE: 1. GA from LMP: N/A wks 2. GA from AUA: 8.3 wks ESTIMATED DATE OF DELIVERY: 1. NASRIN from LMP: N/A 2. NASRIN from AUA: 08/02/2021 US/US OB <= 14 weeks fetus IMPRESSION: 1. A single live IUP 2. CRL corresponds to 8.3 weeks of gestation giving the NASRIN of 08/02/2021 Discussion: No specific ultrasound followup appears needed at this time. The patient was advised that ultrasound cannot guarantee the of a normal infant. Thank you very much for this referral. This note was generated with a voice recognition program. Please excuse any errors which may have been overlooked during my review of this note. Sometimes these errors may affect the content or meaning of a given sentence.
== END 2020-12-24 14:08 | disposition home or self-care (01) ==
LOC: HO.US 14:07
PROVIDERS: Visit Provider Obstetrics & Gynecology
DX: Z34.90 Encounter for supervision of normal pregnancy, unspecified, unspecified trimester (principal)
CPT/HCPCS: 76801

== ENCOUNTER → 2021-03-16 13:39 | Outpatient (BNVA) | payer OTHER, SELFPAY | PROVIDERS: Visit Provider Advanced Practice Midwife | DX: O99.412 Diseases of the circulatory system complicating pregnancy, second trimester (principal); O21.9 Vomiting of pregnancy, unspecified; Z3A.20 20 weeks gestation of pregnancy | CPT/HCPCS: 99212 ==

== ENCOUNTER 2021-03-18 08:29 | Outpatient (REF) | payer OTHER, SELFPAY ==
--- NOTE | ~2021-03-18 | US_ITS ---
EXAMINATION: US OBSTETRICAL CLINICAL INFORMATION: 20-year-old at 20.1 weeks of gestation Screening for anomaly COMPARISON: 12/24/2020 TECHNIQUE: Real-time transabdominal ultrasound was performed using C1-5 megahertz transducer. FINDINGS: A single, active, fetus is seen in transverse presentation. The placenta is fundal, and the amniotic fluid volume is wnl. MEASUREMENTS: 1. Biparietal Diameter: 4.8 cm; 20.4 wks 2. Occipital Frontal Diameter: 6.0 cm 3. Head Circumference: 17.2 cm; 19.6 wks 4. Abdominal Circumference: 15.7 cm; 21.0 wks 5. Femur Length: 3.4 cm; 20.4 wks 6. Humerus Length: 3.2 cm; 20.6 wks 7. Tibia Length: 3.0 cm; 21.0 wks 8. Ulna Length: 3.0 cm; 21.3 wks 9. Lateral ventricle: 0.5 cm 10. Cerebellum: 2.0 cm; 20.5 wks 11. Cisterna Magna: 0.5 cm 12. Nuchal Fold: 3.3 mm 13. Heart Rate: 150 beats per minute Rt ovary: normal Lt ovary: normal Cervical length 3.3 cm on T/A. GESTATIONAL AGE: 1. Established GA: 20.1 wks 2. GA from [facility]: 20.4 wks ESTIMATED DATE OF DELIVERY: 1. Established NASRIN: 08/04/2021 2. NASRIN from [facility]: 08/01/2021 ANATOMY: The visualized anatomy includes but not limited to: 1. Cranium: Normal 2. Intracranial anatomy: cavum septum pellucidi, lateral ventricles, choroid plexus, cerebellum, posterior fossa, third and fourth ventricles. 3. face: orbits, lip/palate, profile, nasal bone 4. Heart: four-chamber view of the heart, ventricular septum, foramen ovale, pulmonary vein, left and right outflow tracts, three-vessel view, 3 vessel trachea view, aortic and ductal arches, situs.. 5. Diaphragm: Normal 6. Abdominal wall: Normal 7. Cord Insertion: Normal 8. Spine: Cervical, thoracic, lumbar, sacral. 9. Stomach: Normal size and shape 10. Right Kidney: Normal 11. Left Kidney: Normal 12. 3 vessel cord: Normal 13. Upper extremity: Open hands, fifth digit. 14. Lower extremity: Tibia, fibula, bilateral feet. 15. Bladder: Normal 16. Genitalia: Female, patient not aware. US/US OB /maternal detail IMPRESSION: 1. Single, living, intrauterine with appropriate biometry. 2. Normal survey DISCUSSION: I reviewed today's ultrasound findings. We discussed the limitations of ultrasound in diagnosing aneuploidy and other congenital abnormalities. I reviewed the differences between screening test and diagnostic test. Amniocentesis was discussed and declined. She was informed that the baseline incidence of congenital abnormalities is approximately 3-5%. Not all these conditions are diagnosable in utero. RECOMMENDATIONS: 1. Follow-up when necessary Thank you for allowing me to participate in her care. Total time 30 minutes. The time spent was devoted to counseling the patient about the disease and diagnosis, coordinating care including reviewing her records, pertinent lab data and studies, as well as discussing diagnostic evaluation and workup, plan therapeutic interventions and future disposition of care. This includes any additional research needed to obtain further information in formulating the plan of care of this patient. This note was generated with a voice recognition program. Please excuse any errors which may have been overlooked during my review of this note. Sometimes these errors may affect the content or meaning of a given sentence.
[2021-03-18 10:51] LABS: Hematocrit 37.4 % (37-47); Hemoglobin 12.3 g/dl (12.0-16.0); Mean Corpuscular HGB Conc 32.9 g/dl (31.0-35.0); Mean Corpuscular Hemoglobin 31.3 pg (27.0-33.0); Mean Corpuscular Volume 95.2 fL (80-98); Mean Platelet Volume 10.3 fL (9.4-12.3); Platelet Count 199 X10*3/uL (160-400); Red Blood Count 3.93 X10*6/uL (4.20-5.50); Red Cell Distribution Width 13.3 % (11.0-16.0); White Blood Count 11.6 X10*3/uL (4.8-10.8)
[2021-03-18 11:25] LABS: HIV AB/AG Nonreactive (Nonreactive); HIV Num 1 0.05 S/CO (0.00-0.99); ~HepC Num1 0.15 S/CO (0.00-0.79); ~Hepatitis C Antibody Nonreactive (Nonreactive)
[2021-03-18 11:27] LABS: Syphilis Screen Nonreactive (Nonreactive)
[2021-03-18 11:30] LABS: HBsAGNum1 0.17 S/CO (0.00-0.99); Hepatitis B Surface Antigen Negative (Negative)
[2021-03-18 13:54] LABS: Amphetamine Screen Urine Not Detected (Not Detect); Barbiturates, Urine Not Detected (Not Detect); Benzodiazepines Screen Urine Not Detected (Not Detect); Cannabinoid Screen Urine POSITIVE (Not Detect); Cocaine Screen Urine Not Detected (Not Detect); Opiate Screen Urine Not Detected (Not Detect); Phencyclidine Screen Urine Not Detected (Not Detect)
[2021-03-19 08:52] LABS: Rubella IgG Antibody 2.48 Index
== END 2021-03-18 08:30 | disposition home or self-care (01) ==
LOC: HO.US 08:29
PROVIDERS: Visit Provider Advanced Practice Midwife
DX: O35.9XX0 Maternal care for (suspected) fetal abnormality and damage, unspecified, not applicable or unspecified (principal); Z3A.20 20 weeks gestation of pregnancy
CPT/HCPCS: 76811; 80307; 85027; 86762; 86780; 86787; 86803; 86850; 86886; 86900; 86901; 87086; 87340; 87389

== ENCOUNTER 2021-05-19 13:33 | Outpatient (REF) | payer OTHER, SELFPAY ==
[2021-05-20 09:13] LABS: CT PCR NOT DETECTED (Not Detect.); NG PCR NOT DETECTED (Not Detect.)
[2021-05-20 09:27] LABS: BV Int Neg Control Negative (Negative); BV Int Pos Control Positive (Positive)
== END 2021-05-19 13:34 | disposition home or self-care (01) ==
LOC: HO.LAB 13:33
PROVIDERS: Visit Provider Advanced Practice Midwife
DX: Z34.93 Encounter for supervision of normal pregnancy, unspecified, third trimester (principal); Z20.2 Contact with and (suspected) exposure to infections with a predominantly sexual mode of transmission
CPT/HCPCS: 87086; 87480; 87491; 87510; 87591; 87660; 88142; 99212

== ENCOUNTER 2021-05-20 12:56 | Outpatient (REF) | payer OTHER, SELFPAY | END 2021-05-20 12:57 | disposition home or self-care (01) | LOC: HO.LAB 12:56 | PROVIDERS: Visit Provider Advanced Practice Midwife | DX: Z13.89 Encounter for screening for other disorder (principal) ==

== ENCOUNTER → 2021-06-03 13:19 | Outpatient (BNVA) | payer OTHER, SELFPAY | PROVIDERS: Visit Provider Advanced Practice Midwife | DX: O36.5930 Maternal care for other known or suspected poor fetal growth, third trimester, not applicable or unspecified (principal); Z3A.31 31 weeks gestation of pregnancy; Z13.31 Encounter for screening for depression | CPT/HCPCS: 81003; 99212 ==

== ENCOUNTER → 2021-06-09 10:34 | Outpatient (BNVA) | payer OTHER, SELFPAY | PROVIDERS: Visit Provider Obstetrics & Gynecology | DX: Z34.83 Encounter for supervision of other normal pregnancy, third trimester (principal); Z3A.32 32 weeks gestation of pregnancy | CPT/HCPCS: 99212 ==

== ENCOUNTER 2022-08-10 10:23 | Emergency (ER) | payer OTHER, SELFPAY ==
--- NOTE | ~2022-08-10 | US_ITS ---
EXAMINATION: US OBSTETRICAL ULTRASOUND CLINICAL INFORMATION: Lower abdominal pain with positive home test COMPARISON: Prior pelvic ultrasound. LMP: 06/27/2022. Gestational age by maternal dates is 6 weeks 2 days. Estimated date of delivery by maternal dates is 04/03/2023. TECHNIQUE: Transabdominal endovaginal scanning was performed FINDINGS: There is a single intrauterine gestational sac with visible yolk sac, embryo/fetus, and cardiac activity. There is a tiny area of subchorionic hemorrhage seen on the left. HR: 126 beats per minute. CRL (crown rump length): 0.7 cm (6 weeks 5 day +/- 4 days). NASRIN (estimated date of delivery): 03/31/2023 +/- 4 days. MATERNAL ADNEXA: The right maternal ovary measures 3.2 x 2.0 x 2.3 cm. There is a 1.9 x 1.3 x 1.4 cm cyst The left maternal ovary measures 2.3 x 1.6 x 1.9 cm. There is no significant maternal adnexal mass. There is a tiny amount of free fluid present in the US/US OB pelvic and transvaginal IMPRESSION: 1. Single intrauterine gestation with ultrasound gestational age of 6 weeks 5 days +/- 4 days. 2. Estimated date of delivery is 03/31/2023 +/- 4 days. 3. There is a small area of subchorionic hemorrhage on the left.
[2022-08-10 10:36] VITALS: BP 113/78; PULSE 97; RESP 18; TEMP 36.5; O2SAT 93
[2022-08-10 10:39] VITALS: BP 103/71; PULSE 72; RESP 18; TEMP 36.2; O2SAT 93
[2022-08-10 11:42] LABS: Hematocrit 47.4 % (37.0-47.0); Hemoglobin 15.9 g/dl (12.0-16.0); Mean Corpuscular HGB Conc 33.5 g/dl (31.0-35.0); Mean Corpuscular Hemoglobin 29.4 pg (27.0-33.0); Mean Corpuscular Volume 87.8 fL (80.0-98.0); Mean Platelet Volume 9.6 fL (9.4-12.3); Platelet Count 289 X10*3/uL (160-400); Red Cell Distribution Width 12.3 % (11.0-16.0)
[2022-08-10 11:44] LABS: WBC ABN SCTR FOR CBC 1
[2022-08-10 12:07] LABS: Alanine Aminotransferase 20 U/L (0-31); Albumin Level 5.5 g/dL (3.5-5.0); Alkaline Phosphatase 66 U/L (39-117); Anion Gap 20 (12-20); Aspartate Amino Transferase 25 U/L (5-31); Bilirubin Direct 0.3 mg/dL (0.0-0.5); Bilirubin Total 0.8 mg/dL (0.0-1.0); Blood Urea Nitrogen 13 mg/dL (9-16); Carbon Dioxide 20 mmol/L (22-29); Chloride 103 mmol/L (96-108); Creatinine Clr Calc Pharmacy 89.4; Estimated Glomerular Filt Rate > 60; Glucose Random 119 mg/dL (60-115); Lipase 22 U/L (8-78); Potassium 4.2 mmol/L (3.3-5.1); Sodium 139 mmol/L (135-145); Total Protein 8.6 g/dL (6.5-8.0)
[2022-08-10 12:17] LABS: Band Neutrophils Percent 1 % (3-5); Lymphocytes Percent Manual 7 % (20-40); Monocytes Percent Manual 6 % (2-11); Neutrophils Percent Manual 86 % (45-73)
[2022-08-10 12:18] LABS: Platelet Estimate NORMAL (NORMAL); Platelet Morphology Comment NORMAL; RBC Morphology NORMAL
[2022-08-10 12:19] LABS: Lymphocytes Absolute Manual 0.8 X10*3/uL (1.2-4.9); Monocytes Absolute Manual 0.6 X10*3/uL (0.1-1.2); Neutrophils Absolute Manual 9.4 X10*3/uL (2.0-8.3); White Blood Count 10.8 X10*3/uL (4.8-10.8)
[2022-08-10 12:22] LABS: Calcium 10.6 mg/dL (8.4-10.2)
--- NOTE | 2022-08-10 14:02 | ED_ITS ---
HPI - Nausea/Vomiting/Diarrhea General Chief complaint: Nausea/Vomiting/Diarrhea Stated complaint: , cant keep anything down, abd pain, CP Related Data Home Medications Medication Instructions Recorded Confirmed vitamin 1 tab PO DAILY 06/03/21 06/03/21 no.76-iron,carbonyl 29 mg iron-folic acid 1 mg tablet (PNV 29-1) Previous Rx's Medication Instructions Recorded metoclopramide HCl 10 mg tablet 10 mg PO Q6H PRN nausea and 12/22/20 (Reglan) vomiting #20 tabs doxylamine succinate 25 mg tablet 25 mg PO BEDTIME PRN sleep #30 tabs 06/03/21 (Unisom (doxylamine)) famotidine 20 mg tablet (Pepcid) 20 mg PO BID 4 weeks #56 tabs 06/03/21 pyridoxine (vitamin B6) 25 mg 25 mg PO TID PRN nausea and 06/03/21 tablet (Vitamin B-6) vomiting #90 tabs Allergies Allergy/AdvReac Type Severity Reaction Status Date / Time kendrick Allergy Intermediate RASH Verified 08/10/22 10:36 [facility] Past Medical History Medical History Heart murmur Family History Family History Paternal Grandmother Lung cancer Social History Social History Household Members: Significant Other and Children Housing: Apartment Are you a primary critical care paramedic to a significant other at home: No Do you presently have visiting nurse or other home services: No Alcohol intake: former Patient Tobacco Use Status: Former Tobacco user Tobacco use type: Cigarette Second Hand Smoke Exposure: No Advance Directives: No Advance Directives Information Provided: No service: No Current occupational status: unemployed Gender identity: Female Physical Exam Vital Signs: Vital Signs: Last Vital Signs Temp 97.2 F 08/10/22 10:39 Pulse 72 08/10/22 10:39 Resp 18 08/10/22 10:39 BP 103/71 08/10/22 10:39 Pulse Ox 93 08/10/22 10:39 O2 Del Method 08/10/22 10:36 BMI result Body Mass Index 20.0 Course Course Course Narrative: 22yo c/o low abd pain, SANTOYO, N/V, lightheadedness and decreased PO intake. +home test on the 5th. LMP 06/27/22 Labs, UA, Pelvic US and IVF ordered in triage MDM - Nausea/Vomiting/Diarrhea Lab Data Result diagrams: 08/10/22 11:19 08/10/22 11:19 Labs: Lab Results 08/10/22 08/10/22 08/10/22 Range/Units 11: 11:19 15:43 WBC 10.8 (4.8-10.8) X10*3/uL RBC 5.40 (4.20-5.50) X10*6/uL Hgb 15.9 (12.0-16.0) g/dl Hct 47.4 H (37.0-47.0) % MCV 87.8 (80.0-98.0) fL MCH 29.4 (27.0-33.0) pg MCHC 33.5 (31.0-35.0) g/dl RDW 12.3 (11.0-16.0) % Plt Count 289 (160-400) X10*3/uL MPV 9.6 (9.4-12.3) fL Immature Gran % (Auto) Cancelled Neut % (Auto) Cancelled Lymph % (Auto) Cancelled Sac % (Auto) Cancelled Eos % (Auto) Cancelled Baso % (Auto) Cancelled Lymph # (Auto) Cancelled Sac # (Auto) Cancelled Eos # (Auto) Cancelled Baso # (Auto) Cancelled Abs Immat Gran (auto) Cancelled Absolute Neuts (auto) Cancelled Absolute Nucleated RBC 0.000 (0.0-0.012) X10*3/uL Nucleated RBC % (auto) 0.0 (0.0-0.2) /100WBC Neutrophils % (Manual) 86 H (45-73) % Band Neutrophils % 1 L (3-5) % Lymphocytes % (Manual) 7 L (20-40) % Monocytes % (Manual) 6 (2-11) % Abs Neuts (Manual) 9.4 H (2.0-8.3) X10*3/uL Lymphocytes # (Manual) 0.8 L (1.2-4.9) X10*3/uL Monocytes # (Manual) 0.6 (0.1-1.2) X10*3/uL Platelet Estimate NORMAL (NORMAL) Plt Morphology Comment NORMAL RBC Morphology NORMAL Sodium 139 (135-145) mmol/L Potassium 4.2 (3.3-5.1) mmol/L Chloride 103 (96-108) mmol/L Carbon Dioxide 20 L (22-29) mmol/L Anion Gap 20 (12-20) BUN 13 (9-16) mg/dL Creatinine 0.82 (0.5-1.4) mg/dL Estim Creat Clear Calc 89.4 Estimated GFR > 60 Random Glucose 119 H (60-115) mg/dL Calcium 10.6 H (8.4-10.2) mg/dL Magnesium 2.3 (1.6-2.6) mg/dL Total Bilirubin 0.8 (0.0-1.0) mg/dL Direct Bilirubin 0.3 (0.0-0.5) mg/dL AST 25 (5-31) U/L ALT 20 (0-31) U/L Alkaline Phosphatase 66 (39-117) U/L Total Protein 8.6 H (6.5-8.0) g/dL Albumin 5.5 H (3.5-5.0) g/dL Lipase 22 (8-78) U/L Beta HCG, Quant 433967 mIU/mL Urine Color Urine Appearance Urine pH (5.0-9.0) Ur Specific Jber (1.005-1.025) Urine Protein (Neg-Trace) mg/dL Urine Glucose (UA) (Negative) mg/dL Urine Ketones (Negative) mg/dL Urine Blood (Negative) Urine Nitrite (Negative) Ur Leukocyte Esterase (Negative) Urine RBC (0-2) /HPF Urine WBC (0-5) /HPF Ur Squamous Epith Cells (0-2) /HPF Urine Bacteria (None Seen) Hyaline Casts (0-2) /LPF Urine Test POSITIVE H (NEGATIVE) 08/10/22 Range/Units 15:43 WBC (4.8-10.8) X10*3/uL RBC (4.20-5.50) X10*6/uL Hgb (12.0-16.0) g/dl Hct (37.0-47.0) % MCV (80.0-98.0) fL MCH (27.0-33.0) pg MCHC (31.0-35.0) g/dl RDW (11.0-16.0) % Plt Count (160-400) X10*3/uL MPV (9.4-12.3) fL Immature Gran % (Auto) Neut % (Auto) Lymph % (Auto) Sac % (Auto) Eos % (Auto) Baso % (Auto) Lymph # (Auto) Sac # (Auto) Eos # (Auto) Baso # (Auto) Abs Immat Gran (auto) Absolute Neuts (auto) Absolute Nucleated RBC (0.0-0.012) X10*3/uL Nucleated RBC % (auto) (0.0-0.2) /100WBC Neutrophils % (Manual) (45-73) % Band Neutrophils % (3-5) % Lymphocytes % (Manual) (20-40) % Monocytes % (Manual) (2-11) % Abs Neuts (Manual) (2.0-8.3) X10*3/uL Lymphocytes # (Manual) (1.2-4.9) X10*3/uL Monocytes # (Manual) (0.1-1.2) X10*3/uL Platelet Estimate (NORMAL) Plt Morphology Comment RBC Morphology Sodium (135-145) mmol/L Potassium (3.3-5.1) mmol/L Chloride (96-108) mmol/L Carbon Dioxide (22-29) mmol/L Anion Gap (12-20) BUN (9-16) mg/dL Creatinine (0.5-1.4) mg/dL Estim Creat Clear Calc Estimated GFR Random Glucose (60-115) mg/dL Calcium (8.4-10.2) mg/dL Magnesium (1.6-2.6) mg/dL Total Bilirubin (0.0-1.0) mg/dL Direct Bilirubin (0.0-0.5) mg/dL AST (5-31) U/L ALT (0-31) U/L Alkaline Phosphatase (39-117) U/L Total Protein (6.5-8.0) g/dL Albumin (3.5-5.0) g/dL Lipase (8-78) U/L Beta HCG, Quant mIU/mL Urine Color Dark Yellow Urine Appearance Cloudy Urine pH 5.5 (5.0-9.0) Ur Specific Jber >= 1.030 H (1.005-1.025) Urine Protein 100 (2+) H (Neg-Trace) mg/dL Urine Glucose (UA) Negative (Negative) mg/dL Urine Ketones 80 (Negative) mg/dL Urine Blood Trace H (Negative) Urine Nitrite Negative (Negative) Ur Leukocyte Esterase Trace H (Negative) Urine RBC 3-5 H (0-2) /HPF Urine WBC 6-10 H (0-5) /HPF Ur Squamous Epith Cells 11-20 (0-2) /HPF Urine Bacteria Trace (None Seen) Hyaline Casts 6-10 (0-2) /LPF Urine Test (NEGATIVE) Discharge Plan Discharge Clinical Impression: Early stage of Patient Disposition: Elopement Prescriptions: No Action metoclopramide HCl [Reglan] 10 mg tablet 10 mg PO Q6H PRN (Reason: nausea and vomiting) Qty: 20 0RF Boostrix Tdap 2.5-8-5 Lf-mcg-Lf/0.5mL syringe 0.5 ml IM ONCE Qty: 0.5 0RF PNV 29-1 29 mg iron- 1 mg tablet 1 tab PO DAILY Unisom (doxylamine) 25 mg tablet 25 mg PO BEDTIME PRN (Reason: sleep) Qty: 30 3RF pyridoxine (vitamin B6) [Vitamin B-6] 25 mg tablet 25 mg PO TID PRN (Reason: nausea and vomiting) Qty: 90 3RF Rx Instructions: may take every 6-8 hours for nausea famotidine [Pepcid] 20 mg tablet 20 mg PO BID 28 Days Qty: 56 2RF Interventions: ED Discharge Assessment Last Done: 08/10/22 16:42 Discharge Date/Time: 08/10/22 16:50
[2022-08-10 14:31] LABS: Magnesium 2.3 mg/dL (1.6-2.6)
[2022-08-10 15:52] LABS: Appearance Urine Cloudy; Color Urine Dark Yellow; Glucose Urine UA Negative (Negative); Leukocyte Esterase Urine Trace (Negative); Nitrite Urine Negative (Negative); PH 5.5 (5.0-9.0); Specific Gravity - Urine >= 1.030 (1.005-1.025); UMIC TRIGGER UACC YES; Urine Blood Trace (Negative); Urine Ketones 80 mg/dL (Negative); Urine Protein 100 (2+) mg/dL (Neg-Trace)
[2022-08-10 15:54] LABS: UPreg QC Valid YES; Urine Pregnancy POSITIVE (NEGATIVE)
[2022-08-10 16:07] LABS: Bacteria Urine Trace (None Seen); UACC Culture Trigger YES
== END 2022-08-10 16:50 | disposition left against medical advice (07) ==
PROVIDERS: Physician Assistant; Emergency Provider Emergency Medicine
DX: O26.891 Other specified pregnancy related conditions, first trimester (principal); R10.30 Lower abdominal pain, unspecified; O21.9 Vomiting of pregnancy, unspecified; Z3A.01 Less than 8 weeks gestation of pregnancy
CPT/HCPCS: 36415; 76801; 76817; 80048; 80076; 81001; 81025; 83690; 83735; 84702; 85007; 85027; 87086; 99282; 99284

== ENCOUNTER 2022-11-08 10:54 | Outpatient (REF) | payer OTHER, SELFPAY ==
[2022-11-08 11:51] LABS: COVID-19 Test Negative (Negative); IDNOW Serial# BCCEAD1C
== END 2022-11-08 10:55 | disposition home or self-care (01) ==
LOC: HO.LAB 10:54
PROVIDERS: Visit Provider Internal Medicine
DX: Z20.822 Contact with and (suspected) exposure to COVID-19 (principal)
CPT/HCPCS: 87635; C9803

== ENCOUNTER 2024-08-11 18:20 | Emergency (ER) | payer OTHER, SELFPAY ==
--- NOTE | ~2024-08-11 | XR_ITS ---
EXAMINATION: XR FOOT, RIGHT CLINICAL INFORMATION: Pain, injury, swelling. COMPARISON: None available. TECHNIQUE: AP, lateral, and oblique views of the right foot. FINDINGS: Soft tissue swelling adjacent to the fifth toe. No unexpected radiopaque foreign bodies. No acute fractures or malalignment. XR/XR foot RT min 3V IMPRESSION: 1. No acute fractures or malalignment. 2. Soft tissue swelling adjacent to the fifth toe. Electronically signed by: Divine Carter MD 08/11/2024 09:57 PM EST [facility]
[2024-08-11 18:57] VITALS: BP 133/86; PULSE 90; RESP 18; TEMP 36.8; O2SAT 95; BMI 26.2
--- NOTE | 2024-08-11 19:01 | ED_ITS ---
HPI - General Adult General Chief complaint: Extremity Injury, Lower Stated complaint: RT pinky toe infection? Time Seen by Provider: 08/12/24 00:08 Source: patient Mode of arrival: ambulatory Limitations: no limitations History of Present Illness ED Provider: Deborah Seymour PA-C HPI narrative: Patient is a 24 year old assigned female at with no reported medical history presenting to the emergency department today with right 5th toe pain / swelling. Patient states that over the last week she has had right 5th toe pain over the last week that is continuing to swell worse. Patient denies any dizziness, lightheadedness, abdominal pain, nausea, vomiting, fever, chills, blurry vision, double vision, loss of vision, chest pain, difficulty breathing, shortness of breath, back pain, night sweats, pain with urination, increased urinary frequency, increased urinary urgency, blood in her urine or stool, syncope or a near syncopal episode, recent trauma or falls, bowel incontinence, bladder incontinence, or any other complaints at this time. Onset (ago): week(s) (1) Location: right (5th toe) Relieving factors: none Exacerbating factors: none Associated symptoms: denies other symptoms Treatments prior to arrival: none Related Data Home Medications ?Medication ?Instructions ?Recorded ?Confirmed vitamin 1 tab PO DAILY 06/03/21 06/03/21 no.76-iron,carbonyl 29 mg iron-folic acid 1 mg tablet (PNV 29-1) Previous Rx's ?Medication ?Instructions ?Recorded metoclopramide HCl 10 mg tablet 10 mg PO Q6H PRN nausea and 12/22/20 (Reglan) vomiting #20 tabs doxylamine succinate 25 mg tablet 25 mg PO BEDTIME PRN sleep #30 tabs 06/03/21 (Unisom (doxylamine)) famotidine 20 mg tablet (Pepcid) 20 mg PO BID 4 weeks #56 tabs 06/03/21 pyridoxine (vitamin B6) 25 mg 25 mg PO TID PRN nausea and 06/03/21 tablet (Vitamin B-6) vomiting #90 tabs Allergies Allergy/AdvReac Type Severity Reaction Status Date / Time kendrick Allergy Intermediate RASH Verified 08/11/24 19:00 Review of Systems 2 Constitutional: Constitutional: Reports no additional constitutional complaints, Denies chills, Denies fever(s) and Denies night sweats Eyes: Eyes: Reports no additional eye complaints, Denies blurry vision, Denies change in vision, Denies diplopia, Denies eye discharge, Denies loss of vision and Denies eye pain ENT: Denies dizziness Cardiovascular: Cardiovascular: Reports no additional cardiovascular complaints, Denies chest pain, Denies lightheadedness, Denies Loss of Consciousness and Denies dyspnea Respiratory: Respiratory: Reports no additional respiratory complaints and Denies dyspnea Gastrointestinal: Gastrointestinal: Reports no additional gastrointestinal complaints, Denies abdominal pain, Denies melena, Denies hematochezia, Denies change in bowel habits and Denies change in stool character Genitourinary: Genitourinary: Denies hematuria, Denies urinary frequency, Denies dysuria, Denies urinary incontinence, Denies urinary hesitancy and Denies urinary urgency Musculoskeletal: Musculoskeletal: Reports no additional musculoskeletal complaints, Denies numbness and Denies tingling Comments: right 5th toe pain and swelling Neurologic: Denies dizziness, Denies loss of vision, Denies numbness and Denies tingling Psychiatric: Psychiatric: Reports no additional psychiatric complaints Endocrine: Endocrine: Reports no additional endocrine complaints Hematologic/Lymphatic: Hematologic/Lymphatic: Reports no additional hematologic/lymphatic complaints Allergic/Immunologic: Allergic/Immunologic: Reports no additional allergic/immunologic complaints [facility] Past Medical History Attestation statement: The following information was validated with the patient. Source: old records reviewed and nursing notes reviewed Medical History Heart murmur Family History Family History Paternal Grandmother Lung cancer Social History Social History Household Members: Significant Other and Children Housing: Apartment Are you a primary resident care provider to a significant other at home: No Do you presently have visiting nurse or other home services: No Alcohol intake: former Patient Tobacco Use Status: Former Tobacco user Tobacco use type: Cigarette Second Hand Smoke Exposure: No Advance Directives: No Advance Directives Information Provided: No Do you have a plan to hurt others: No Plan service: No Current occupational status: unemployed Gender identity: Female Physical Exam ED Vital Signs: Vital Signs - 24 hr 08/11/24 18:57 Temperature 98.2 F Pulse Rate 90 Respiratory Rate 18 Blood Pressure 133/86 Pulse Oximetry 95 Oxygen Delivery Method Room Air BMI result Body Mass Index 26.2 Const General: cooperative, no acute distress, alert and awake Nutritional Appearance: well nourished Orientation/consciousness: patient oriented x3 Limitations: no limitations HENMT Head: Yes normal to inspection and Yes atraumatic Ears: hearing grossly normal bilaterally and external ears normal General nose exam: Normal external nose present, no nasal discharge noted and no epistaxis Face and sinus: Yes normal facial exam, No abrasion and No laceration Mouth: Normal oral and palatal mucosa present, no drooling and no muffled voice Eyes General: appearance normal, both eyes and all related structures Periorbital: periorbital findings normal Eyelids: Yes eyelids normal Conjunctivae: conjunctivae normal Pupils: Equal, round and reactive pupils present EOM: EOMs intact bilaterally Neck Neck: Yes normal visual inspection, Yes full ROM and Yes no lymphadenopathy Chest Chest palpation & inspection: normal inspection of the chest Resp Effort & Inspection: normal respiratory effort and able to speak in complete sentences GI Inspection: Yes normal to inspection Neuro General: patient oriented x3 and moves all extremities Cranial nerves: Yes Equal, round and reactive pupils present Cognition (Neuro): normal cognition Extrem Other: swelling and bruising present to the web space of the right 5th and 4th toes General: Yes full ROM and Yes capillary refill normal Psych Appearance: grossly normal Mental Status: mental status grossly normal Affect: normal affect Attitude: cooperative Thought process: Normal thought process present Thought content: Normal thought content present Insight: Good insight present (Psych) Course Course Course Narrative: RME performed by Deborah Seymour PA-C. Patient is a 24 year old assigned female at presenting to the emergency department with right 5th toe swelling. Detailed physical exam and review of systems are deferred to the primary school teacher. Labs and imaging ordered. Patient placed back in the waiting room pending room availability and results. Medical Decision Making Medical Decision Making MDM Narrative: Patient is a 24 year old assigned female at with no reported medical history presenting to the emergency department today with right 5th toe swelling / pain. Patient's limited physical exam performed in triage was as noted in the physical exam portion of this note. Patient's blood work was unremarkable. Patient's right foot x-ray showed no acute process. Patient left the department without completing treatment. Patient left the department before myself or any of the other emergency department clinicians could explain to or review with the patient; physical exam findings, test results, need or lack there of for additional testing, need or lack there of for a procedure to be performed, need or lack there of for hospital admission / transfer, need or lack there of for prescription medication, treatment options, or a treatment plan. Differential Diagnosis Differential Diagnoses: The differential diagnosis associated with the presentation includes Abscess Toe swelling Admission/Observation Consideration of admission/observation: Escalation of care including admission/observation considered Patient would have been admitted to the hospital had she completed her work up and it had any findings where hospital admission was appropriate, her clinical presentation warranted hospital admission, had myself or any other emergency sack department supervisor had the ability to discuss need or lack there of for hospital admission, and the patient hadn't left the department without completing treatment. Lab Data [facility] Lab Attestation statement: I reviewed the patient's lab results. My interpretation of these results are in the [facility] Rationale portion of this note. 08/11/24 19:13 08/11/24 19:13 Labs: Lab Results 08/11/24 Range/Units 19:13 WBC 11.1 H (4.8-10.8) X10*3/uL RBC 4.57 (4.20-5.50) X10*6/uL Hgb 14.5 (12.0-16.0) g/dl Hct 41.0 (37.0-47.0) % MCV 89.7 (80.0-98.0) fL MCH 31.7 (27.0-33.0) pg MCHC 35.4 H (31.0-35.0) g/dl RDW 12.4 (11.0-16.0) % Plt Count 223 (160-400) X10*3/uL MPV 10.0 (9.4-12.3) fL Immature Gran % (Auto) Cancelled Neut % (Auto) Cancelled Lymph % (Auto) Cancelled Lander % (Auto) Cancelled Eos % (Auto) Cancelled Baso % (Auto) Cancelled Lymph # (Auto) Cancelled Lander # (Auto) Cancelled Eos # (Auto) Cancelled Baso # (Auto) Cancelled Abs Immat Gran (auto) Cancelled Absolute Neuts (auto) Cancelled Absolute Nucleated RBC 0.000 (0.0-0.012) X10*3/uL Nucleated RBC % (auto) 0.0 (0.0-0.2) /100WBC Neutrophils % (Manual) 70 (45-73) % Band Neutrophils % 0 L (3-5) % Lymphocytes % (Manual) 16 L (20-40) % Monocytes % (Manual) 10 (2-11) % Eosinophils % (Manual) 4 (0-4) % Abs Neuts (Manual) 7.8 (2.0-8.3) X10*3/uL Lymphocytes # (Manual) 1.8 (1.2-4.9) X10*3/uL Monocytes # (Manual) 1.1 (0.1-1.2) X10*3/uL Eosinophils # (Manual) 0.4 (0.0-0.4) X10*3/uL Toxic Vacuolation PRESENT Platelet Estimate NORMAL (NORMAL) Plt Morphology Comment NORMAL RBC Morphology NORMAL ESR 2 (0-20) MM/HR Sodium 139 (135-145) mmol/L Potassium 3.8 (3.3-5.1) mmol/L Chloride 110 H (96-108) mmol/L Carbon Dioxide 19 L (22-29) mmol/L Anion Gap 14 (12-20) BUN 12 (9-16) mg/dL Creatinine 0.74 (0.5-1.4) mg/dL Estim Creat Clear Calc 111.0 Estimated GFR > 60 Random Glucose 102 (60-115) mg/dL Calcium 9.5 D (8.4-10.2) mg/dL Magnesium 2.1 (1.6-2.6) mg/dL Total Bilirubin 0.4 (0.0-1.0) mg/dL AST 31 (5-31) U/L ALT 26 (0-31) U/L Alkaline Phosphatase 76 (39-117) U/L C-Reactive Protein 0.50 (< or = 0.50) mg/dL Total Protein 7.3 (6.5-8.0) g/dL Albumin 4.5 (3.5-5.0) g/dL Independent Interpretation I performed an independent interpretation of an: Plain X-Ray Interpretation: My interpretation is in agreement with the radiologist's impression of this imaging study. L EXAMINATION: XR FOOT, RIGHT CLINICAL INFORMATION: Pain, injury, swelling. COMPARISON: None available. TECHNIQUE: AP, lateral, and oblique views of the right foot. FINDINGS: Soft tissue swelling adjacent to the fifth toe. No unexpected radiopaque foreign bodies. No acute fractures or malalignment. XR/XR foot RT min 3V IMPRESSION: 1. No acute fractures or malalignment. 2. Soft tissue swelling adjacent to the fifth toe. Electronically signed by: Divine Carter MD 08/11/2024 09:57 PM [facility] Dictated By: Divine Carter Signed By: Electronically signed by Divine Carter 08/11/24 7220 Radiology Impression Discussion of test interpretation with radiology: I have reviewed the radiologist's reading. Discharge Plan Discharge Clinical Impression: Toe swelling Patient Disposition: Left W/O Completing Treatment Prescriptions: No Action metoclopramide HCl [Reglan] 10 mg tablet 10 mg PO Q6H PRN (Reason: nausea and vomiting) Qty: 20 0RF Boostrix Tdap 2.5-8-5 Lf-mcg-Lf/0.5mL syringe 0.5 ml IM ONCE Qty: 0.5 0RF PNV 29-1 29 mg iron- 1 mg tablet 1 tab PO DAILY Unisom (doxylamine) 25 mg tablet 25 mg PO BEDTIME PRN (Reason: sleep) Qty: 30 3RF pyridoxine (vitamin B6) [Vitamin B-6] 25 mg tablet 25 mg PO TID PRN (Reason: nausea and vomiting) Qty: 90 3RF Rx Instructions: may take every 6-8 hours for nausea famotidine [Pepcid] 20 mg tablet 20 mg PO BID 28 Days Qty: 56 2RF Discharge Date/Time: 08/12/24 00:17
[2024-08-11 19:34] LABS: Hemoglobin 14.5 g/dl (12.0-16.0); Mean Corpuscular HGB Conc 35.4 g/dl (31.0-35.0); Mean Corpuscular Hemoglobin 31.7 pg (27.0-33.0); Mean Corpuscular Volume 89.7 fL (80.0-98.0); Platelet Count 223 X10*3/uL (160-400); Red Blood Count 4.57 X10*6/uL (4.20-5.50); Red Cell Distribution Width 12.4 % (11.0-16.0)
[2024-08-11 19:35] LABS: Alanine Aminotransferase 26 U/L (0-31); Albumin Level 4.5 g/dL (3.5-5.0); Alkaline Phosphatase 76 U/L (39-117); Anion Gap 14 (12-20); Aspartate Amino Transferase 31 U/L (5-31); Bilirubin Total 0.4 mg/dL (0.0-1.0); Blood Urea Nitrogen 12 mg/dL (9-16); Calcium 9.5 mg/dL (8.4-10.2); Carbon Dioxide 19 mmol/L (22-29); Chloride 110 mmol/L (96-108); Estimated Glomerular Filt Rate > 60; Glucose Random 102 mg/dL (60-115); Magnesium 2.1 mg/dL (1.6-2.6); Potassium 3.8 mmol/L (3.3-5.1); Sodium 139 mmol/L (135-145); Total Protein 7.3 g/dL (6.5-8.0)
[2024-08-11 20:08] LABS: WBC ABN SCTR FOR CBC 1
[2024-08-11 20:16] LABS: Erythrocyte Sedimentation Rate 2 MM/HR (0-20)
[2024-08-11 20:19] LABS: Eosinophils Percent Manual 4 % (0-4); Lymphocytes Percent Manual 16 % (20-40); Monocytes Percent Manual 10 % (2-11); Neutrophils Percent Manual 70 % (45-73)
[2024-08-11 20:20] LABS: Band Neutrophils Percent 0 % (3-5)
[2024-08-11 20:22] LABS: Platelet Estimate NORMAL (NORMAL); Platelet Morphology Comment NORMAL; RBC Morphology NORMAL; Toxic Vacuolation PRESENT
[2024-08-11 20:23] LABS: Eosinophils Absolute Manual 0.4 X10*3/uL (0.0-0.4); Lymphocytes Absolute Manual 1.8 X10*3/uL (1.2-4.9); Monocytes Absolute Manual 1.1 X10*3/uL (0.1-1.2); Neutrophils Absolute Manual 7.8 X10*3/uL (2.0-8.3); White Blood Count 11.1 X10*3/uL (4.8-10.8)
--- NOTE | 2024-08-12 00:16 | PC.NURSE ---
Pt no answer when called for reassessment.
== END 2024-08-12 00:17 | disposition left against medical advice (07) ==
PROVIDERS: Physician Assistant Medical; Emergency Provider Emergency Medicine
DX: R60.0 Localized edema (principal); M79.671 Pain in right foot; Z79.899 Other long term (current) drug therapy
CPT/HCPCS: 36415; 73630; 80053; 83735; 85007; 85025; 85027; 85652; 86140; 99281; 99283

== ENCOUNTER 2024-10-24 22:44 | Emergency (ER) | payer OTHER, SELFPAY ==
[2024-10-24 23:02] VITALS: BP 118/77; PULSE 62; RESP 16; TEMP 37; O2SAT 98; BMI 28.7
[2024-10-24 23:13] LABS: MANUAL DIFF FLAG NO
[2024-10-24 23:14] LABS: Basophils Percent Auto 0.2 % (0-2); Eosinophils Absolute Auto 0.1 X10*3/uL (0.0-0.4); Eosinophils Percent Auto 0.7 % (0-4); Hematocrit 42.8 % (37.0-47.0); Hemoglobin 15.1 g/dl (12.0-16.0); Imm Gran Abs Auto 0.08 X10*3/uL (0.00-0.03); Imm Gran Pct Auto 0.4 % (0.0-0.4); Lymphocytes Absolute Auto 2.9 X10*3/uL (1.2-4.9); Lymphocytes Percent Auto 15.6 % (20-40); Mean Corpuscular HGB Conc 35.3 g/dl (31.0-35.0); Mean Corpuscular Hemoglobin 31.6 pg (27.0-33.0); Mean Corpuscular Volume 89.5 fL (80.0-98.0); Mean Platelet Volume 9.9 fL (9.4-12.3); Monocytes Absolute Auto 0.9 X10*3/uL (0.1-1.2); Monocytes Percent Auto 4.8 % (2-11); Neutrophils Absolute Auto 14.7 x10*3/uL (2.0-8.3); Neutrophils Percent Auto 78.3 % (45-73); Platelet Count 228 X10*3/uL (160-400); Red Blood Count 4.78 X10*6/uL (4.20-5.50); Red Cell Distribution Width 12.6 % (11.0-16.0); White Blood Count 18.7 X10*3/uL (4.8-10.8)
[2024-10-24 23:27] LABS: Alanine Aminotransferase 26 U/L (0-31); Albumin Level 4.7 g/dL (3.5-5.0); Alkaline Phosphatase 78 U/L (39-117); Anion Gap 15 (12-20); Aspartate Amino Transferase 29 U/L (5-31); Bilirubin Total 0.5 mg/dL (0.0-1.0); Blood Urea Nitrogen 10 mg/dL (9-16); Carbon Dioxide 18 mmol/L (22-29); Chloride 110 mmol/L (96-108); Creatinine Clr Calc Pharmacy 126.1; Estimated Glomerular Filt Rate > 60; Glucose Random 103 mg/dL (60-115); Lipase 12 U/L (8-78); Potassium 3.9 mmol/L (3.3-5.1); Sodium 139 mmol/L (135-145); Total Protein 7.8 g/dL (6.5-8.0)
[2024-10-24 23:35] LABS: HCG Quantitative < 2 mIU/mL
== END 2024-10-25 03:28 | disposition left against medical advice (07) ==
PROVIDERS: Emergency Provider Emergency Medicine; PCP Internal Medicine
DX: R10.9 Unspecified abdominal pain (principal); Z53.21 Procedure and treatment not carried out due to patient leaving prior to being seen by health care provider
CPT/HCPCS: 36415; 80053; 83690; 84702; 85025; 99281

== ENCOUNTER 2025-06-13 11:29 | Inpatient (IN) | payer OTHER, SELFPAY ==
[2025-06-13] VITALS (11 sets, daily range): BP systolic 100–120; BP diastolic 58–67; PULSE 16–124; RESP 16–18; TEMP 36.2–37.7; O2SAT 90–98; BMI 26.9
--- NOTE | ~2025-06-13 | CT_ITS ---
CLINICAL HISTORY: RLQ pain, N V D ?appe CT abdomen and pelvis with contrast Comparison: None provided Findings: The lung bases are clear. The liver and spleen are homogeneous in attenuation. Hepatomegaly, 18.6 cm. The left and right kidney demonstrate normal corticomedullary enhancement. No bowel obstruction, pneumoperitoneum, or pneumatosis. The appendix is mildly dilated, 0.9 cm with mild periappendiceal inflammatory changes, coronal image 38 of 84 series 6 Left ovarian rim enhancing low-attenuation center focus, 1.4 x 2.3 cm. Medially left ovarian low-attenuation, 1.7 x 2 cm. Periuterine varicosities present. No acute fracture. IMPRESSION: 1. Mildly dilated appendix (0.9 cm) with mild periappendiceal inflammatory changes, suggestive of early appendicitis. Clinical correlation suggested. 2. Left ovarian complex cystic lesions, largest measuring 1.7 x 2 cm. 3. Periuterine varicosities; associated with pelvic congestion syndrome. This document has been electronically signed by: Mckinley Pompa MD on 06/13/2025 14:33:32
--- NOTE | 2025-06-13 11:35 | ED.GENADULT ---
HPI - General Adult General Chief complaint: Abdominal Pain Stated complaint: abd pain vomiting Time Seen by Provider: 06/13/25 12:07 Source: patient Mode of arrival: ambulatory Limitations: no limitations History of Present Illness ED Provider: GIOVANNA RUSSELL PA-C HPI narrative: 25-year-old female presents to the ED today for evaluation of abdominal pain since 1600 yesterday. Abdominal pain was initially localized to her right lower abdomen, now radiating up towards her right upper quadrant. She rates her pain 8/10. Pain has been constant since onset. She did not trial any [id number] pain medications prior to arrival. Reports associated nausea, vomiting and multiple episodes of diarrhea since yesterday afternoon. Denies melena, hematochezia or hematemesis. States her emesis prior to ED arrival today was yellow . She has been unable to tolerate p.o. intake. Reports eating atypical meal of rice and steak around 1100 yesterday, prior to onset of symptoms. Her last menstrual period was approximately 2 weeks ago. She is currently sexually active. She uses condoms. She is not on control. Denies vaginal bleeding, discharge, urinary sx. Denies any history of abdominal surgeries. Related Data Home Medications ?Medication ?Instructions ?Recorded ?Confirmed vitamin 1 tab PO DAILY 06/03/21 06/03/21 no.76-iron,carbonyl 29 mg iron-folic acid 1 mg tablet (PNV 29-1) Previous Rx's ?Medication ?Instructions ?Recorded metoclopramide HCl 10 mg tablet 10 mg PO Q6H PRN nausea and 12/22/20 (Reglan) vomiting #20 tabs doxylamine succinate 25 mg tablet 25 mg PO BEDTIME PRN sleep #30 tabs 06/03/21 (Unisom (doxylamine)) famotidine 20 mg tablet (Pepcid) 20 mg PO BID 4 weeks #56 tabs 06/03/21 pyridoxine (vitamin B6) 25 mg 25 mg PO TID PRN nausea and 06/03/21 tablet (Vitamin B-6) vomiting #90 tabs Allergies Allergy/AdvReac Type Severity Reaction Status Date / Time kendrick Allergy Intermediate RASH Verified 06/13/25 11:44 Review of Systems Review of Systems: Yes all other systems are reviewed and are negative PMFSH Past Medical History Attestation statement: The following information was validated with the patient. Source: old records reviewed and nursing notes reviewed Medical History Heart murmur Family History Family History Paternal Grandmother Lung cancer Social History Social History Household Members: Significant Other and Children Housing: Apartment Are you a primary child care associate teacher to a significant other at home: No Do you presently have visiting nurse or other home services: No Alcohol intake: former Patient Tobacco Use Status: Former Tobacco user Tobacco use type: Cigarette Smoked in Last 30 Days: No Second Hand Smoke Exposure: No Use of substances other than those prescribed or required for medical reasons: No Advance Directives: No Advance Directives Information Provided: No Do you have a plan to hurt others: No Plan service: No Current occupational status: unemployed Gender identity: Female Physical Exam ED Vital Signs: Vital Signs - 24 hr 06/13/25 11:42 06/13/25 14:11 Temperature 99.9 F 99 F Pulse Rate 124 H 91 Respiratory Rate 18 16 Blood Pressure 120/58 L 107/64 Pulse Oximetry 92 98 Oxygen Delivery Method Room Air Room Air BMI result Body Mass Index 26.9 Tachycardic, low-grade temp of 99.9? General: Well appearing, in no acute distress. Skin: Warm, dry, intact. No rashes or lesions. Head: Normocephalic, atraumatic. EENT: Hearing is intact b/l. Conjunctiva clear. Sclera is anicteric. PERRLA. EOM intact. Moist mucous membranes.? Cardiac: Chest wall symmetric. RRR Lungs: Normal respiratory effort without accessory muscle use. CTA bilaterally Abdomen: Soft, nondistended, diffusely tender to palpation with guarding. Positive McBurney point tenderness. Positive Rovsing sign. Active bowel sounds x4. Ext: Upper and lower extremities atraumatic, without tenderness, deformity, swelling or erythema Neuro: AOx3. Normal speech. Ambulating with steady gait. Psych: Appropriate mood and affect. Responds appropriately to questions. Course Course Course Narrative: Rapid medical examination performed in triage by Deborah Seymour PA-C. Patient is a 25 year old assigned female at presenting to the emergency department with abdominal pain. Detailed physical exam and review of systems are deferred to the dough mixing machine operator. Labs and swabs ordered. Patient placed back in the waiting room pending room availability and results. Reevaluation(s) Reevaluation #1: 1306 -- patient is tachycardic to 124 beats per minute, she has leukocytosis to 17.3 with left shift. I have concern for intra-abdominal infection. Sepsis alert initiated at this time. Lactic/blood cultures pending. Zosyn ordered for broad-spectrum coverage. Receiving IV fluids. 1450 -- lactic wnl at 1.8. blood cultures pending. CT abdomen/pelvis showing mildly dilated appendix at 0.9 cm with mild periappendiceal inflammatory changes suggestive of early appendicitis. There is also a left ovarian complex cystic lesion measuring 1.7 x 2 cm along with periuterine varicosities suggestive of pelvic congestive syndrome. > informed patient of results. Discussed with general surgeon, Dr. Finch who has evaluated patient at bedside. After discussion, patient has opted for surgical intervention. Dr. Finch will be taking her to the OR at this time. she is currently stable. I have ordered a dose of morphine for pain control. Medications Administered Discontinued Medications Generic Name Dose Route Start Last Admin Trade Name Freq PRN Reason Stop Dose Admin Sodium Chloride 1,000 mls @ 999 mls/hr 06/13/25 12:30 06/13/25 14:10 Ns IV 06/13/25 13:30 Infused .Q1H1M SRIKANTH Infusion Acetaminophen 1,000 mg in 100 mls @ 400 mls/hr 06/13/25 12:27 06/13/25 13:22 Ofirmev IV 06/13/25 12:41 Infused ONCE ONE Infusion Piperacillin Sod/Tazobactam 50 mls @ 100 mls/hr 06/13/25 13:04 06/13/25 14:00 Sod 3.375 gm/ Sodium Chloride IV 06/13/25 13:33 Infused ONCE ONE Infusion Iohexol 100 ml 06/13/25 14:02 06/13/25 14:02 Iohexol 350 Mg/Ml 100 Ml Infus..Btl IV 06/13/25 14:03 85 ml ONCE ONE Administration Ondansetron HCl 4 mg 06/13/25 13:15 06/13/25 14:10 Ondansetron Hcl 4 Mg/2 Ml Vial IVPUSH 06/13/25 13:16 4 mg ONCE ONE Administration Medical Decision Making Medical Decision Making [facility] Narrative: This is a 25 year old female with RLQ pain, most concerning for acute appendicitis. She is tachycardic to 124. Vitals are otherwise WNL. she is generally well appearing and in NAD. on exam, her abdomen is soft, nondistended, diffusely tender to palpation with guarding. Positive McBurney point tenderness. Positive Rovsing sign. Active bowel sounds x4. Differential diagnoses: appendicitis, UTI, IUP, constipation, pyelonephritis Low suspicion for acute hepatobiliary disease (including acute cholecystitis), acute infectious processes (pneumonia, hepatitis, pyelonephritis, PID, TOA), vascular catastrophe, bowel obstruction or viscus perforation, ovarian cyst/ rupture/ torsion, ectopic. Presentation not consistent with other acute, emergent causes of abdominal pain at this time. Plan: labs, UA, CT AP, pain control, fluids, serial reassessment Differential Diagnosis Differential Diagnoses: The differential diagnosis associated with the presentation includes as above. Admission/Observation Consideration of admission/observation: Escalation of care including admission/observation considered patient admitted to the surgical service with plan for OR for acute appendicitis Consult Healthcare Provider Management of the patient was discussed with: Nurse Ortho (general surgery, dr. finch) Lab Data [facility] Lab Attestation statement: I reviewed the patient's lab results. as above. 06/13/25 12:27 06/13/25 12:27 Labs: Lab Results 06/13/25 06/13/25 Range/Units 12:27 12:46 WBC 17.3 H (4.8-10.8) X10*3/uL RBC 4.52 (4.20-5.50) X10*6/uL Hgb 14.6 (12.0-16.0) g/dl Hct 40.3 (37.0-47.0) % MCV 89.2 (80.0-98.0) fL MCH 32.3 (27.0-33.0) pg MCHC 36.2 H (31.0-35.0) g/dl RDW 12.5 (11.0-16.0) % Plt Count 188 (160-400) X10*3/uL MPV 10.1 (9.4-12.3) fL Immature Gran % (Auto) 0.6 H (0.0-0.4) % Neut % (Auto) 92.4 H (45-73) % Lymph % (Auto) 4.3 L (20-40) % [place] % (Auto) 2.4 (2-11) % Eos % (Auto) 0.1 (0-4) % Baso % (Auto) 0.2 (0-2) % Lymph # (Auto) 0.7 L (1.2-4.9) X10*3/uL [place] # (Auto) 0.4 (0.1-1.2) X10*3/uL Eos # (Auto) 0.0 (0.0-0.4) X10*3/uL Baso # (Auto) 0.0 (0.0-0.2) X10*3/uL Abs Immat Gran (auto) 0.10 H (0.00-0.03) X10*3/uL Absolute Neuts (auto) 16.0 H (2.0-8.3) x10*3/uL Absolute Nucleated RBC 0.000 (0.0-0.012) X10*3/uL Nucleated RBC % (auto) 0.0 (0.0-0.2) /100WBC Smear Tech's Comments VERIFIED Sodium 137 (135-145) mmol/L Potassium 3.4 (3.3-5.1) mmol/L Chloride 106 (96-108) mmol/L Carbon Dioxide 18 L (22-29) mmol/L Anion Gap 16 (12-20) BUN 11 (9-16) mg/dL Creatinine 0.65 (0.5-1.4) mg/dL Estim Creat Clear Calc 126.9 Estimated GFR > 60 Random Glucose 117 H (60-115) mg/dL Lactic Acid 0.8 (0.5-2.0) mmol/L Calcium 9.2 (8.4-10.2) mg/dL Magnesium 2.0 (1.6-2.6) mg/dL Total Bilirubin 1.6 H (0.0-1.0) mg/dL AST 31 (5-31) U/L ALT 21 (0-31) U/L Alkaline Phosphatase 76 (39-117) U/L Total Protein 7.5 (6.5-8.0) g/dL Albumin 4.7 (3.5-5.0) g/dL Beta HCG, Quant < 2 mIU/mL COVID-19 (NOLVIA) Negative (Negative) COVID-19 Clin Com See Note Influenza Type A (ROLANDO) Negative (Negative) Influenza Type B (ROLANDO) Negative (Negative) Influenza A & B Note See Note Independent Interpretation I performed an independent interpretation of an: CT Scan Interpretation: ct a/p with periappendiceal fluid Radiology Impression Discussion of test interpretation with radiology: I have reviewed the radiologist's reading. Radiologist Impression: Procedure(s): CT abdomen pelvis w IV con Accession Number(s): [id number] cc: Keila Sandra MD; Giovanna Russell~ Report Number: [id number]: Total DLP = 513.00 mGy-cm Reason for Exam: RLQ pain, N/V/D ?appe ADDENDUMThis document has been electronically signed by: Mckinley Pompa MD on 06/13/2025 14:33:32 ADDENDUM: This report was discussed with Yvonne CÁRDENAS on Jun 13, 2025 14:43:00 EDT. This document has been electronically signed by: Gayle Bustos on 06/13/2025 14:43:53 Addendum Dictated By: Mckinley Pompa MD Addendum Signed By: <Electronically signed by Mckinley Pompa MD in OV> 06/13/25 144 Addendum Cosigned By: DD/ TD/TT: 06/13/25 CLINICAL HISTORY: RLQ pain, N V D ?appe CT abdomen and pelvis with contrast Comparison: None provided Findings: The lung bases are clear. The liver and spleen are homogeneous in attenuation. Hepatomegaly, 18.6 cm. The left and right kidney demonstrate normal corticomedullary enhancement. No bowel obstruction, pneumoperitoneum, or pneumatosis. The appendix is mildly dilated, 0.9 cm with mild periappendiceal inflammatory changes, coronal image 38 of 84 series 6 Left ovarian rim enhancing low-attenuation center focus, 1.4 x 2.3 cm. Medially left ovarian low-attenuation, 1.7 x 2 cm. Periuterine varicosities present. No acute fracture. IMPRESSION: 1. Mildly dilated appendix (0.9 cm) with mild periappendiceal inflammatory changes, suggestive of early appendicitis. Clinical correlation suggested. 2. Left ovarian complex cystic lesions, largest measuring 1.7 x 2 cm. 3. Periuterine varicosities; associated with pelvic congestion syndrome. This document has been electronically signed by: Mckinley Pompa MD on 06/13/2025 14:33:32 Independent Historian Clinical information obtained from an independent historian. History obtained from or confirmed by: Other (partner) External Record Review External record reviewed: Inpatient record Prescription Management I considered prescription management with: Pain Medication and Antibiotic Social Determinants Patient?s care significantly limited by Social Determinants of Health including: Other Social Determinant of Health Critical Care Time Critical Care Time Critical Care Time: Yes Total Critical Care Time: 45 Attestation: Critical care time in the amount of 45 minutes has been provided to the patient in terms of direct patient care, frequent reevaluation, consultation with general surgery, review and interpretation of medical data and results, and management of potentially life-threatening conditions. This is all outside of any medical procedures. Discharge Plan Discharge Clinical Impression: Acute appendicitis, Sepsis, Complex cyst of left ovary Patient Disposition: Admitted As Inpatient Print Language: Egyptian
--- OUTSIDE RECORDS SUMMARY | 2025-06-13 11:52 | XMS_ITS | Clinical Summary ---
Author Organization [facility] ity Address [address] [place] [address] Care Team Providers Care Executive Staff Assistant Name Role Phone Unavailable Primary Care Provider Unavailabl e Medical History Medical History Date Comments Heart murmur DX:Heart murmur Family History Medical History Relation Name Comments Other: lung cancer Paternal Grandmother Relation Name Status Comments Paternal Grandmother Social History Tobacco Use Types Packs/Day Years Used Date Smoking Tobacco: Never Assessed Comments Unknown Sex and Gender Information Value Date Recorded Sex Assigned at Not on file Legal Sex Female 3:58 AM EST Gender Identity Not on file Sexual Orientation Not on file Obstetrics History Plan of Treatment Health Maintenance Due Date Last Done Comments HPV Vaccines (1 - 3-dose series) 2014 DTaP,Tdap,and Td Vaccines (1 - Tdap) 2018 Hepatitis B Vaccines (1 of 3 - 19+ 3-dose series) 2018 Cervical Cancer Screening: P ap Smear 2020 Depression Screening 10/01/2024 COVID-19 Vaccine ( - 2023-2 5 season) 2025 Influenza Vaccine (#1) 2025 HIB Vaccines Aged Out No longer eligi ble based on patient's age to complete this topic Hepatitis A Vaccines Aged Out No long er eligible based on patient's age to complete this topic IPV Vaccines Aged Out No longer eligi ble based on patient's age to complete this topic MMR Vaccines Aged Out No longer eligi ble based on patient's age to complete this topic Meningococcal ACWY Vaccine Aged Out N o longer eligible based on patient's age to complete this topic Meningococcal B Vaccine Aged Out No l onger eligible based on patient's age to complete this topic Pneumococcal Vaccine: Pediat rics (0 to 5 Years) and At-Risk Patients (6 to 49 Years) Aged Out No longer eligible b ased on patient's age to complete this topic RSV Immunization Patients Un ana paula 20 months Aged Out No longer eligible b ased on patient's age to complete this topic Varicella Vaccines Aged Out No longer eligible based on patient's age to complete this topic
--- OUTSIDE RECORDS SUMMARY | 2025-06-13 11:52 | XMS_ITS | Clinical Summary ---
Author Organization [employer] Address [address] [place] [address] Care Team Providers Care Pre Sales Architect Name Role Phone Unavailable Primary Care Provider Unavailabl e Social History Tobacco Use Types Packs/Day Years Used Date Smoking Tobacco: Never Assessed Comments Unknown Sex and Gender Information Value Date Recorded Sex Assigned at Female 07/31/2022 10:15 AM EDT Legal Sex Female 10:15 AM EDT Gender Identity Female 10/06/2024 4:08 PM EST Sexual Orientation Straight 10/06/2024 4: 08 PM EST Plan of Treatment Health Maintenance Due Date Last Done Comments Depression Screening 1999 HIV Screening 1999 SDOH Screening 1999 Disability Screening 1999 Alcohol/Substance Use Screening 2011 Tobacco Screening 2011 Family Planning (PISQ) 2014 Hepatitis C Screening 2017 Pneumococcal Vaccine: Pediatrics (0 to 5 Years) and At-Risk Patients (6 to 49) Years (1 of 2 - PCV) 2018 07/26/2000, 05/14/2000 Pap Smear 2020 COVID-19 Vaccine ( season) 2025 Influenza Vaccine (#1) 2025 8, 07/16/2018, 07/28/2013, Additional history exists DTaP/Tdap/Td Vaccines (8 - Td or Tdap) 06/07/2028 06/07/2018, 05/17/2010, 01/12/2004, Additional history exists Zoster Vaccines (1 of 2) 2049 RSV Patients and Patients Aged 60 years or older (1 - 1-dose 75+ series) 2074 Hepatitis B Vaccines Completed 03/22/2000, 01/12/2000, 1999 HIB Vaccines Completed 07/26/2000, 10/02, 1999, Additional history exists IPV Vaccines Completed 01/12/2004, 07/01, 1999, Additional history exists Hepatitis A Vaccines Completed 12/05/2007, 12/05/2007, 11/23/2006, Additional history exists HPV Vaccines Completed 08/20/2012, 06/01, 05/17/2010 Meningococcal Vaccine Completed 05/12/2015 , 05/12/2015, 05/17/2010, Additional history exists Meningococcal B Vaccine Aged Out No l onger eligible based on patient's age to complete this topic RSV under 20 months Aged Out No longe r eligible based on patient's age to complete this topic Rotavirus Vaccines Aged Out No longer eligible based on patient's age to complete this topic Insurance [facility]
[2025-06-13 12:43] LABS: Hematocrit 40.3 % (37.0-47.0); Hemoglobin 14.6 g/dl (12.0-16.0); Imm Gran Abs Auto 0.10 X10*3/uL (0.00-0.03); Imm Gran Pct Auto 0.6 % (0.0-0.4); Lymphocytes Absolute Auto 0.7 X10*3/uL (1.2-4.9); MANUAL DIFF FLAG SCAN; Mean Corpuscular HGB Conc 36.2 g/dl (31.0-35.0); Mean Corpuscular Hemoglobin 32.3 pg (27.0-33.0); Mean Corpuscular Volume 89.2 fL (80.0-98.0); NRBC Abs Auto 0.000 X10*3/uL (0.0-0.012); NRBC Pct Auto 0.0 /100WBC (0.0-0.2); Platelet Count 188 X10*3/uL (160-400); Red Blood Count 4.52 X10*6/uL (4.20-5.50); SCAN SMEAR FLAG 1; White Blood Count 17.3 X10*3/uL (4.8-10.8)
[2025-06-13 12:59] LABS: Alanine Aminotransferase 21 U/L (0-31); Albumin Level 4.7 g/dL (3.5-5.0); Alkaline Phosphatase 76 U/L (39-117); Anion Gap 16 (12-20); Aspartate Amino Transferase 31 U/L (5-31); Blood Urea Nitrogen 11 mg/dL (9-16); Calcium 9.2 mg/dL (8.4-10.2); Carbon Dioxide 18 mmol/L (22-29); Chloride 106 mmol/L (96-108); Creatinine Clr Calc Pharmacy 126.9; Estimated Glomerular Filt Rate > 60; Magnesium 2.0 mg/dL (1.6-2.6); Potassium 3.4 mmol/L (3.3-5.1); Sodium 137 mmol/L (135-145); Total Protein 7.5 g/dL (6.5-8.0)
[2025-06-13 13:01] LABS: COVID-19 Test Negative (Negative); IDNOW Serial# 55D5AD1C; IDNOW Serial# 58CA691E; Influenza B2 Negative (Negative)
[2025-06-13] MEDS: iohexoL 350 MG/ML 100 ML INFUS..BTL IV (14:02)
--- NOTE | 2025-06-13 14:52 | PM.HPGS ---
History of Present Illness History of Present Illness Date of Service: 06/14/25 Chief complaint: Acute appendicitis Narrative: Teetee Miller is a 25 year old female who is here in the ER because of what she describes as abdominal pain, mostly in the right lower quadrant since yesterday afternoon. She says that this has persisted throughout the night. She describes some watery stools earlier. She also had some nausea and vomiting She says that the pain has not improved since yesterday. She denies any significant medical history although she does state that she was told she had ?hypoxia? before. She has never had any abdominal surgeries in the past. Review of Systems Constitutional: Constitutional: Reports chills and Denies fever(s) Cardiovascular: Cardiovascular: Denies chest pain, Denies dyspnea and Denies dyspnea on exertion Respiratory: Respiratory: Denies cough, Denies dyspnea and Denies dyspnea on exertion Gastrointestinal: Gastrointestinal: Denies hematochezia and Denies change in bowel habits Genitourinary: Genitourinary: Denies hematuria Musculoskeletal: Musculoskeletal: Denies back pain and Denies limited range of motion Neurologic: Denies focal weakness and Denies convulsions Psychiatric: Psychiatric: Denies depression and Denies mood swings PMFSH Past Medical History Medical History Heart murmur Family History Family History Paternal Grandmother Lung cancer Social History Social History Household Members: Significant Other Both parents involved: Yes Caregiver staying overnight: No Housing: Apartment Are you a primary childbirth and infant care teacher to a significant other at home: No Do you presently have visiting nurse or other home services: No 75 years or older and lives alone: No Alcohol intake: former Comment: counts correct Patient Tobacco Use Status: Former Tobacco user Tobacco use type: Cigarette Cigarettes Per Day: 4 Second Hand Smoke Exposure: No service: No Current occupational status: unemployed Gender identity: Female Meds Allergies Allergy/AdvReac Type Severity Reaction Status Date / Time kendrick Allergy Intermediate RASH Verified 06/13/25 11:44 Physical Exam Vital Signs: Vital Signs: Last Vital Signs Temp 99 F 06/13/25 14:11 Pulse 91 06/13/25 14:11 Resp 16 06/13/25 14:11 BP 107/64 06/13/25 14:11 Pulse Ox 98 06/13/25 14:11 O2 Del Method Room Air 06/13/25 14:11 BMI result Body Mass Index 26.9 Const: Other: Says she is uncomfortable General: no acute distress Orientation/consciousness: patient oriented x3 Neck: Neck: Yes no lymphadenopathy Resp: Auscultation: clear to auscultation bilaterally Cardio: Rhythm: regular rhythm GI: Other: Tender on right lower quadrant Palpation (GI): Soft to palpation, Tenderness to palpation present (GI) and no guarding Neuro: General: patient oriented x3 Results Results Labs: Short CBC 06/13/25 Range/Units 12:27 WBC 17.3 H (4.8-10.8) X10*3/uL Hgb 14.6 (12.0-16.0) g/dl Hct 40.3 (37.0-47.0) % Plt Count 188 (160-400) X10*3/uL BMP 06/13/25 12:27 Sodium 137 Potassium 3.4 Chloride 106 Carbon Dioxide 18 L BUN 11 Creatinine 0.65 Calcium 9.2 Liver Function 06/13/25 Range/Units 12:27 Total Bilirubin 1.6 H (0.0-1.0) mg/dL AST 31 (5-31) U/L ALT 21 (0-31) U/L Alkaline Phosphatase 76 (39-117) U/L Albumin 4.7 (3.5-5.0) g/dL Abdomen CT scan report/results: report reviewed and image reviewed CT scan - pelvis: report reviewed and image reviewed Additional studies: The appendix is mildly dilated, 0.9 cm with mild periappendiceal inflammatory changes, coronal image 38 of 84 series 6 Left ovarian rim enhancing low-attenuation center focus, 1.4 x 2.3 cm. Medially left ovarian low-attenuation, 1.7 x 2 cm. Periuterine varicosities present. No acute fracture. IMPRESSION: 1. Mildly dilated appendix (0.9 cm) with mild periappendiceal inflammatory changes, suggestive of early appendicitis. Clinical correlation suggested. 2. Left ovarian complex cystic lesions, largest measuring 1.7 x 2 cm. 3. Periuterine varicosities; associated with pelvic congestion syndrome. This document has been electronically signed by: Mckinley Pompa MD on 06/13/2025 14:33:32 Assessment and Plan (1) Acute appendicitis: Status: Acute 25 year old female with right lower quadrant pain since yesterday afternoon. This has been persistent. She is significantly tender in the right lower quadrant. I have reviewed her CAT scan and this shows mild inflammatory changes he had dilated appendix consistent with early acute appendicitis I explained to her the option of proceeding with laparoscopic appendectomy with possible open appendectomy. I reviewed the risks including but not limited to bleeding, infections, injury to other organs including bowel and the urinary tract, staple line leak, as well as the benefits and alternatives. I also explained to her what to expect postoperatively. She also understands the option of nonoperative treatment with antibiotics alone. She understands and wants to proceed with the appendectomy We will put her on the schedule now for laparoscopic appendectomy and possible open. Quality Stroke Does the patient have a stroke diagnosis?: No VTE Prior VTE?: No VTE Risk Level:: Medical - low VTE Device Contraindication: N/A - Device Ordered VTE Drug Contraindication: Treatment Not Indicated Procedures Date of Service Date of Service: 06/14/25
[2025-06-13] MEDS: Lactated Ringers 1,000 ML 100 ML IVCONT (15:31)
--- NOTE | 2025-06-13 15:44 | HO.ANESPROP2 ---
HPI - Anesthesia Eval Consult details Narrative: for appendectomy PMFSH Active Problems Active Problems: All Active Problems Complex cyst of left ovary (Acute) Sepsis (Acute) Acute appendicitis (Acute) Cervical cancer screening (Acute) care in third trimester (Acute) Heart murmur (Acute) Early stage of (Acute) Hypoxia (Acute) Intractable nausea and vomiting (Acute) UTI (urinary tract infection) (Acute) Hypoxia (Acute) Early stage of (Acute) Vomiting during (Acute) Dyspnea (Acute) Past Medical History Medical History Heart murmur Patient : No Family History Family History Paternal Grandmother Lung cancer Family history of problems with anesthesia: No Surgical History History of Problems with Anesthesia: No Social History Social History Household Members: Significant Other and Children Housing: Apartment Are you a primary sub acute care nurse to a significant other at home: No Do you presently have visiting nurse or other home services: No Alcohol intake: former Patient Tobacco Use Status: Former Tobacco user Tobacco use type: Cigarette Second Hand Smoke Exposure: No service: No Current occupational status: unemployed Gender identity: Female Meds Allergies Allergy/AdvReac Type Severity Reaction Status Date / Time kendrick Allergy Intermediate RASH Verified 06/13/25 11:44 Active Medications: Current Medications Acetaminophen (Acetaminophen 325 Mg Tablet) 650 mg PO Q6H PRN PRN Reason: Pain, Mild 1-3,fever,headache Calcium Carbonate (Calcium Carbonate 750 Mg Tab.Chew) 750 mg PO Q4H PRN PRN Reason: Heartburn Lactated Ringer's (Lr) 1,000 mls @ 100 mls/hr IVCONT .Q10H SRIKANTH Last Admin: 06/13/25 15:31 Dose: 100 mls/hr Piperacillin Sod/Tazobactam (Sod 3.375 gm/ Sodium Chloride) 50 mls @ 100 mls/hr IV Q6H SRIKANTH Ondansetron HCl (Ondansetron Hcl 4 Mg/2 Ml Vial) 4 mg IVPUSH Q8H PRN PRN Reason: Nausea and Vomiting Sodium Chloride (0.9 % Sodium Chloride Flush 3 Ml Syringe) 3 ml IVFLUSH QSHIFT [facility] Home Medications ?Medication ?Instructions ?Recorded ?Confirmed ?Last Taken ?Type vitamin 1 tab PO DAILY 06/03/21 06/03/21 Unknown History no.76-iron,carbonyl 29 mg iron-folic acid 1 mg tablet (PNV 29-1) Exam Height,Weight and Vital Signs: Height 5 ft 4 in Weight 71.2 kg Last Vital Signs Temp 99 F 06/13/25 14:12 Pulse 16 L 06/13/25 14:14 Resp 16 06/13/25 14:14 BP 115/64 06/13/25 14:14 Pulse Ox 98 06/13/25 14:14 O2 Del Method Room Air 06/13/25 14:14 Pertinent Lab Results Pertinent Lab Results: Laboratory Tests 06/13/25 06/13/25 12:27 12:46 WBC 17.3 H RBC 4.52 Hgb 14.6 Hct 40.3 MCV 89.2 MCH 32.3 MCHC 36.2 H RDW 12.5 Plt Count 188 MPV 10.1 Immature Gran % (Auto) 0.6 H Neut % (Auto) 92.4 H Lymph % (Auto) 4.3 L Cole % (Auto) 2.4 Eos % (Auto) 0.1 Baso % (Auto) 0.2 Lymph # (Auto) 0.7 L Cole # (Auto) 0.4 Eos # (Auto) 0.0 Baso # (Auto) 0.0 Abs Immat Gran (auto) 0.10 H Absolute Neuts (auto) 16.0 H Absolute Nucleated RBC 0.000 Nucleated RBC % (auto) 0.0 Smear Tech's Comments VERIFIED Sodium 137 Potassium 3.4 Chloride 106 Carbon Dioxide 18 L Anion Gap 16 BUN 11 Creatinine 0.65 Estim Creat Clear Calc 126.9 Estimated GFR > 60 Random Glucose 117 H Lactic Acid 0.8 Calcium 9.2 Magnesium 2.0 Total Bilirubin 1.6 H AST 31 ALT 21 Alkaline Phosphatase 76 Total Protein 7.5 Albumin 4.7 Beta HCG, Quant < 2 COVID-19 (NOLVIA) Negative COVID-19 Clin Com See Note Influenza Type A (ROLANDO) Negative Influenza Type B (ROLANDO) Negative Influenza A & B Note See Note Airway TM Dist: <=3cm Neck ROM: Full Loose/Missing/Broken Teeth: No Heart: ok Lungs: ok Assessment and Plan Assessment Anesthesia Assessment: Anesthesia Plan Discussed and Chart Reviewed Final Anesthetic Review Family History of Problems with Anesthesia: No History of Problems with Anesthesia: No NPO: Yes ASA Class: II and Emergency Final Preanesthetic Review: No Changes in Pt Med Stat, Meds/Allgs Chart Reviewed, Consent Obtained/Reviewed and Anes Risks/Benef Reviewed Patient Risk: Low Procedure Risk: Intermediate Anesthetic Plan Anesthetic Plan: GA and Agree w/ Assess. and Plan Disposition: Standard PACU
--- NOTE | 2025-06-13 16:55 | W.PM.OPN ---
Operative Note Operative Note Date of Service: 06/13/25 Narrative: Preop diagnosis: Acute appendicitis Postop diagnosis: Acute appendicitis with a very indurated and erythematous appendix Procedure: Laparoscopic appendectomy Surgeon: Jeff Arceo MD The patient is a 25 year old female with right lower quadrant pain and tenderness. Her CAT scan was consistent with the acute appendicitis. She understood the technique of the planned procedure. She was aware of the risks, benefits, and alternatives. She was brought to the operating room. She was placed supine under general anesthesia via endotracheal tube. A Trejo catheter was inserted. The abdomen was prepped and draped in the usual sterile fashion. A surgical time-out was done. The patient was on scheduled IV antibiotics I made a short infraumbilical incision with a blade 15. This carried down through the full-thickness of the skin and subcutaneous fat down to the fascia. The fascia was incised. The peritoneum was entered. Through this incision a Head port was introduced. Pneumoperitoneum was introduced to a pressure of 15 mm Hg and from here on the rest of the procedure was done under vision with the 5 mm 30 degree laparoscope. The the patient is placed in a head-down position in the left side down position. With laparoscopic visualization I inserted a 5/12 mm port in the left lower quadrant and a 5 mm port in the suprapubic margin of the midline. Graspers were placed through these working ports. Small bowel loops were reflected away from the right lower quadrant. The cecum was seen and attached to this was a very inflamed, indurated and distended appendix mostly on the distal 2/3. I was able to apply a grasper at the appendix to put this on stretch. I used the [place] dissector to define the base and create a mesenteric window. I then proceeded to use a 30 mm Endo-CARLINE through the umbilical port and this was positioned across the base. This was fired and the appendix was completely transected . I resected the attached mesoappendix using the LigaSure until the entire appendix was completely . This was retrieved through an endobag through the umbilical incision. I reinserted all ports and re-insufflated. I examined the area of dissection. There was note of good hemostasis. I observed all 4 quadrants. There was no evidence of any bowel injury or any other pathology Once hemostasis was reconfirmed the by proceeded to then desufflated the port sites. I removed all ports under vision with the laparoscope. The umbilical port was removed last. The fascia of the umbilical incision was closed with a [id number] Polysorb 0 stitch. Skin closure was achieved with Polysorb 4-0 subcuticular sutures. All incisions were infiltrated with Marcaine 0.5% for postop analgesia. Dressings were applied. The procedure was completed The patient tolerated the procedure well. There were no immediate complications. Initial and final counts of sponges and instruments were correct. Estimated blood loss was less than 20 cc. The patient was extubated without difficulty and transferred to the recovery room with stable vital signs.
--- NOTE | 2025-06-13 17:58 | PM.EVENT ---
Event Note Date of Service: 06/13/25 Event Note: Seen postop Underwent uneventful laparoscopic appendectomy Appears to have good pain control Stable vital signs Abdomen is soft Pain management Diet ordered Possible DC home tomorrow morning Family at bedside Time Spent With Patient Time: Total time managing care of this patient today ____ minutes.
[2025-06-13] MEDS: oxyCODONE HCl Immed Release 5 MG TABLET PO (19:18)
[2025-06-13] MEDS: 0.9 % Sodium Chloride Flush 3 ML SYRINGE IVFLUSH (19:25)
[2025-06-14 03:27] VITALS: BP 98/53; PULSE 64; RESP 16; TEMP 36.3; O2SAT 92
[2025-06-14] MEDS: oxyCODONE HCl Immed Release 5 MG TABLET PO (06:22)
[2025-06-14 07:33] VITALS: BP 110/57; PULSE 76; RESP 16; TEMP 36.9; O2SAT 92
[2025-06-14] MEDS: Lactated Ringers 1,000 ML 100 ML IVCONT (08:05)
[2025-06-14 09:41] VITALS: BP 116/63; PULSE 79; RESP 18; TEMP 36.4; O2SAT 92
--- NOTE | 2025-06-14 09:59 | PM.PNGS ---
Subjective Subjective Date of Service: 06/14/25 Interval history: Some nausea this morning Tolerating diet however No events overnight Good pain control Physical Exam Vital Signs: Vital Signs: Last Vital Signs Temp 97.5 F 06/14/25 09:41 Pulse 79 06/14/25 09:41 Resp 18 06/14/25 09:41 BP 116/63 06/14/25 09:41 Pulse Ox 92 06/14/25 09:41 O2 Del Method Nasal Cannula 06/14/25 09:41 O2 Flow Rate 1 06/14/25 09:41 BMI result Body Mass Index 26.9 Const: General: comfortable and no acute distress Resp: Effort & Inspection: normal respiratory effort Cardio: Rate: regular rate GI: Other: Dressings dry Palpation (GI): Soft to palpation, not firm and no guarding Objective Data Active Medications Acetaminophen (Acetaminophen 325 Mg Tablet) 650 mg PO Q6H PRN PRN Reason: Pain, Mild 1-3,fever,headache Last Admin: 06/14/25 01:44 Dose: 650 mg Documented By: RACQUEL Calcium Carbonate (Calcium Carbonate 750 Mg Tab.Chew) 750 mg PO Q4H PRN PRN Reason: Heartburn Lactated Ringer's (Lr) 1,000 mls @ 80 mls/hr IVCONT .[id number] [facility] Last Admin: 06/14/25 08:05 Dose: 100 mls/hr Documented By: DEYA Piperacillin Sod/Tazobactam (Sod 3.375 gm/ Sodium Chloride) 50 mls @ 100 mls/hr IV Q6H [facility] Last Infusion: 06/14/25 07:02 Dose: Infused Documented By: DEYA Morphine Sulfate (Morphine Sulfate 2 Mg/Ml Cartridge) 2 mg IVPUSH Q3H PRN; Protocol PRN Reason: Pain, Severe (Pain Scale 7-10) Last Admin: 06/14/25 05:30 Dose: 2 mg Documented By: RACQUEL Ondansetron HCl (Ondansetron Hcl 4 Mg/2 Ml Vial) 4 mg IVPUSH Q8H PRN PRN Reason: Nausea and Vomiting Ondansetron HCl (Ondansetron Hcl 4 Mg/2 Ml Vial) 4 mg IVPUSH Q6H PRN PRN Reason: Nausea and Vomiting Last Admin: 06/14/25 06:17 Dose: 4 mg Documented By: RACQUEL Oxycodone HCl (Oxycodone Hcl Immed Release 5 Mg Tablet) 5 mg PO Q4H PRN PRN Reason: Pain, Moderate(Pain Scale 4-6) Last Admin: 06/14/25 06:22 Dose: 5 mg Documented By: RACQUEL Sodium Chloride (0.9 % Sodium Chloride Flush 3 Ml Syringe) 3 ml IVFLUSH QSHIFT SRIKANTH Last Admin: 06/14/25 08:03 Dose: Not Given Documented By: DEYA Non-Admin Reason: IV Running Labs 06/13/25 12:27 06/13/25 12:27 Labs: Laboratory Results - last 24 hr 06/13/25 06/13/25 12:27 12:46 MCV 89.2 MCH 32.3 MCHC 36.2 H RDW 12.5 Plt Count 188 MPV 10.1 Immature Gran % (Auto) 0.6 H Neut % (Auto) 92.4 H Lymph % (Auto) 4.3 L Hickman % (Auto) 2.4 Eos % (Auto) 0.1 Baso % (Auto) 0.2 Lymph # (Auto) 0.7 L Hickman # (Auto) 0.4 Eos # (Auto) 0.0 Baso # (Auto) 0.0 Abs Immat Gran (auto) 0.10 H Absolute Neuts (auto) 16.0 H Absolute Nucleated RBC 0.000 Nucleated RBC % (auto) 0.0 Smear Tech's Comments VERIFIED Anion Gap 16 Estim Creat Clear Calc 126.9 Estimated GFR > 60 Random Glucose 117 H Lactic Acid 0.8 Calcium 9.2 Magnesium 2.0 Total Bilirubin 1.6 H AST 31 ALT 21 Alkaline Phosphatase 76 Total Protein 7.5 Albumin 4.7 Beta HCG, Quant < 2 COVID-19 (NOLVIA) Negative COVID-19 Clin Com See Note Influenza Type A (ROLANDO) Negative Influenza Type B (ROLANDO) Negative Influenza A & B Note See Note Microbiology Microbiology Results: Microbiology 06/13/25 12:46 Blood Culture - Preliminary Blood - Venous Prelim: GNR Gram Stain only Procedures Date of Service Date of Service: 06/14/25 Progress Note: A&P Assessment and plan (1) Acute appendicitis: Status: Acute Assessment and Plan: Status post lap appy yesterday Doing very well Good pain control Abdomen is soft and benign Okay to DC home today Discharge instructions reinforced with the patient Time Spent With Patient Time: Total time managing care of this patient today ____ minutes. Quality Stroke Does the patient have a stroke diagnosis?: No VTE Prior VTE?: No VTE Risk Level:: Medical - low VTE Device Contraindication: N/A - Device Ordered VTE Drug Contraindication: Treatment Not Indicated
--- NOTE | 2025-06-14 11:45 | MHC.CM.PN ---
Dx Appendicitis S/P Appendectomy She lives with her S.O. Independent with all functional mobility Declined the offer to document a HCP. DP Home self care. Patient will arrange for a family member to provide transportation home.
--- NOTE | 2025-06-14 12:47 | P.DS_ITS ---
DS: Providers Provider Date of Service: 06/14/25 Date of admission: 06/13/25 14:57 Date of discharge: 06/14/25 Primary care physician: Keila Sandra MD Attending physician on admission: Jeff Arceo Attending physician on discharge: Jeff Arceo DS: Diagnosis Discharge Diagnosis (1) Acute appendicitis: Status: Acute DS: Summary Hospital Course Hospital Course: HPI AT ADMISSION: Teetee Miller is a 25 year old female who is here in the ER because of what she describes as abdominal pain, mostly in the right lower quadrant since yesterday afternoon. She says that this has persisted throughout the night. She describes some watery stools earlier. She also had some nausea and vomiting. She says that the pain has not improved since yesterday. She denies any significant medical history although she does state that she was told she had ?hypoxia? before. She has never had any abdominal surgeries in the past. HOSPITAL COURSE: The patient was admitted to the surgical service for further treatment of the acute appendicitis. She elected to proceed with laparoscopic appendectomy. She was added onto the OR schedule for that day. On 06/13/25, a laparoscopic appendectomy was performed by Dr. Arceo without complication. She was found to have very indurated and erythematous appendix. The patient tolerated the procedure well. She had an uncomplicated recovery course. On POD #1, she felt well and was tolerating a solid diet without vomiting, had good pain control and was ambulating without difficulty. She was hemodynamically stable. Her abdomen was benign with appropriate post op tenderness and clean and intact dressings. She felt ready for discharge. She was discharged to home on 06/14/25 in stable condition. She is to follow up in the office in 2 weeks. Status at Discharge Functional status at discharge: independent ambulation Overall status at discharge: patient is progressing back to baseline Time Attestation Discharge Coordination Time (in mins): 25 Quality: Safe Use of Opioids Does Pt have an Active Cancer Diagnosis on the Problem List?: No Quality: Stroke Does the patient have a stroke diagnosis?: No Physical Exam Vital Signs: Vital Signs: Last Vital Signs Temp 97.5 F 06/14/25 09:41 Pulse 79 06/14/25 09:41 Resp 18 06/14/25 09:41 BP 116/63 06/14/25 09:41 Pulse Ox 92 06/14/25 09:41 O2 Del Method Nasal Cannula 06/14/25 09:41 O2 Flow Rate 1 06/14/25 09:41 BMI result Body Mass Index 26.9 Const: General: comfortable, no acute distress and alert Orientation/consciousness: patient oriented x3 GI: Inspection: Yes incision (dressings clean and intact) Palpation (GI): Soft to palpation, Tenderness to palpation present (GI) (mild incisional) and no guarding Neuro: General: patient oriented x3 DS: Data Data Completed and Pending Pending studies at discharge: Pending at discharge 06/13/25 16:44 Surgical [PTH] Routine Labs on day of discharge: Preliminary micro results at discharge 06/13/25 12:46 Blood Culture - Preliminary Blood - Venous Gram negative landon 06/13/25 12:46 Blood Culture - Preliminary Blood - Venous No growth after 24 hours. Discharge Plan Discharge Anticipated Discharge Date/Time: 06/14/25 11:30 Patient Disposition: Home, Self-Care Discharge Diagnosis: Acute appendicitis Referrals: Keila Sandra MD [Primary Care Provider, Medical] - 1 Week Jeff Arceo MD [Physician, General Surgery] - 2 Weeks Discharge Medications: New oxycodone-acetaminophen 5-325 mg tablet 1 tab PO Q6H PRN (Reason: pain) Qty: 20 0RF Rx Instructions: Partial Fill upon patient request. ibuprofen 600 mg tablet 600 mg PO Q6H PRN (Reason: pain) Qty: 30 0RF Discharge Orders: Discharge Order (Routine); Ordered 06/14/25 Ordered By: Jeff Arceo Diet: Advance to usual diet Activity on Discharge: No heavy lifting Stand Alone Forms: Patient Portal Discharge page Print Language: Ukrainian Activity Restrictions/Additional Instructions: If the incision area is tender, you may apply an ice pack for short intervals (No more than 20 minutes on, followed by at least 20 minutes off). Do not apply heat. Do not use creams, lotions, or topical antibiotics unless instructed to do so by your surgeon. These can cause infection or allergic reaction. No lifting more than 20 lbs Okay to shower starting June 15 Okay to change dressings with gauze or Band-Aid starting June 15 No strenuous activities Call the office for follow-up in 2 weeks - with Dr. Arceo Call Your Doctor If: -Your temperature exceeds 101.5? F -You experience excessive pain or swelling -You have an unexpected reaction to medication -You have excessive bleeding -You experience continued vomiting/nausea -Your incision begins to separate -Your incision shows signs of infection such as increased redness, swelling, excessive pain, drainage (light blood or clear fluid is normal) or heat Care Plan Goals: Return to baseline Health Concerns: Postop pain Plan of Treatment: Oral pain meds Assessment: Doing very well Discharge Date/Time: 06/14/25 12:25
== END 2025-06-14 12:25 | disposition home or self-care (01) | DRG 234 ==
LOC: HO.ED 15:18 → HO.EDOVER 17:09 → HO.S3 17:56
PROVIDERS: Physician Assistant Medical; Admitting Provider Surgery; Emergency Provider Emergency Medicine; PCP Internal Medicine; Visit Provider Surgery
PROC: 0DTJ4ZZ Resection of Appendix, Percutaneous Endoscopic Approach (ICD-10-PCS; CPT 44950; principal; 2025-06-13 16:00)
DX: K35.80 Unspecified acute appendicitis (principal); Z20.822 Contact with and (suspected) exposure to COVID-19; Z87.891 Personal history of nicotine dependence
CPT/HCPCS: 36415; 74177; 80053; 83605; 83735; 84702; 85025; 87040; 87077; 87186; 87205; 87502; 87635; 88304; 99285; J0131; J0616; J1596; J2003; J2270; J2405; J2543; J2550; J2704; J2795; J3010; J7120; Q9967

== ENCOUNTER → 2025-06-13 12:26 | Outpatient (BNV) | payer OTHER, SELFPAY | PROVIDERS: Emergency Provider Emergency Medicine; PCP Internal Medicine; Visit Provider Radiology Diagnostic Radiology | DX: N83.202 Unspecified ovarian cyst, left side (principal); I86.2 Pelvic varices | CPT/HCPCS: 74177 ==

== ENCOUNTER → 2025-06-13 14:57 | Outpatient (BNV) | payer OTHER, SELFPAY | PROVIDERS: Admitting Provider Surgery; Emergency Provider Emergency Medicine; PCP Internal Medicine; Visit Provider Surgery | DX: K35.890 Other acute appendicitis without perforation or gangrene (principal) | CPT/HCPCS: 44970; 99024; 99222; 99499 ==

== ENCOUNTER 2025-06-23 09:41 | Outpatient (AMB) | payer OTHER, SELFPAY ==
--- NOTE | 2025-06-23 09:42 | A.OFFVIS_ITS ---
Vital Signs 06/23/25 09:49 Weight 160 lb BP 111/56 L Blood Pressure Location Rt brachial Position Sitting Pulse 84 Intake Visit Reasons: s/p appendicitis Intake Note: Patient here s/p Laparoscopic appendectomy. Steri- strips removed without incident. Patient c/o: on and off pain. Taking Ibuprofen and Oxycodone at night. 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 Very minimal pain. Has had some difficulty sleeping due to pain as she is a stomach sleeper, taking oxycodone as needed to help her sleep. Appetite and bowel function are at baseline. No concerns for her incision site, denies drainage. Denies fevers or chills at home. Denies heavy lifting [facility] Medical History Heart murmur Family History Paternal Grandmother Lung cancer Social History Household Members: Significant Other Both parents involved: Yes Caregiver staying overnight: No Housing: Apartment Are you a primary care manager cna to a significant other at home: No Do you presently have visiting nurse or other home services: No 75 years or older and lives alone: No Alcohol intake: former Comment: counts correct Patient Tobacco Use Status: Former Tobacco user Tobacco use type: Cigarette Cigarettes Per Day: 4 Second Hand Smoke Exposure: No service: No Current occupational status: unemployed Gender identity: Female Female Reproductive History Menstrual Age of Menarche: 11 Physical Exam Vital Signs: Last Vital Signs Pulse 84 06/23/25 09:49 BP 111/56 L 06/23/25 09:49 Const General: comfortable and no acute distress Orientation/consciousness: patient oriented x3 Resp Effort & Inspection: normal respiratory effort and able to speak in complete sentences GI Other: Incision sites clean and dry, intact. No drainage, no palpable fluid collection. No surrounding erythema. There was some mild ecchymosis just inferior to the umbilicus Inspection: No distended Palpation (GI): Soft to palpation and nontender Neuro General: patient oriented x3 Assessment & Plan Assessment & Plan (1) S/P laparoscopic appendectomy: Code(s): Z90.49 - Acquired absence of other specified parts of digestive tract Category: Medical Plan 25-year-old female s/p laparoscopic appendectomy on 06/13/2025 returning to the [facility] for routine follow up. Overall patient doing very well, pain well controlled overall, still having some pain at night due to her sleeping positions, taking oxycodone to assist with this. She is okay to continue with this for sleeping as needed, can also supplement with OTC ibuprofen and Tylenol as needed. Otherwise appetite and bowel function are at baseline. She has not heavy lifting. We will continue with activity restrictions until July 11. Patient agreeable to this plan. 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 On exam the abdomen is soft and benign. Incision sites are clean dry and intact. No concern for infection at this time. She is okay to shower, clean around the incision sites, instructed her to avoid submerging incisions. She is no longer requiring routine follow up. She can follow up as needed with any concerns in the future Coding Level of Care Code Global (45920) Diagnoses S/P laparoscopic appendectomy Z90.49
[2025-06-23 09:49] VITALS: BP 111/56; PULSE 84
--- OUTSIDE RECORDS SUMMARY | 2025-06-23 11:33 | XMS_ITS | Clinical Summary ---
Author Organization [facility] ity Address [address] [place] [address] Care Team Providers Care Dough Mixer Helper Name Role Phone Unavailable Primary Care Provider [...]
--- OUTSIDE RECORDS SUMMARY | 2025-06-23 11:33 | XMS_ITS | Clinical Summary ---
Author Organization [employer] Address [address] [place] [address] Care Team Providers Care Field Support Specialist Name Role Phone Unavailable Primary Care Provider [...] patient's age to complete this topic Insurance [facility]
== END 2025-06-23 10:01 | disposition home or self-care (01) ==
LOC: HO.HGS 09:41
PROVIDERS: PCP Internal Medicine
DX: Z90.49 Acquired absence of other specified parts of digestive tract (principal)
CPT/HCPCS: 99024

== ENCOUNTER → 2025-06-23 09:41 | Outpatient (BNVA) | payer OTHER, SELFPAY | PROVIDERS: PCP Internal Medicine | DX: Z48.815 Encounter for surgical aftercare following surgery on the digestive system (principal); Z98.890 Other specified postprocedural states; Z90.49 Acquired absence of other specified parts of digestive tract | CPT/HCPCS: 99212 ==